=== PATIENT | female | born 1995 | race Caucasian/White ===

== ENCOUNTER 2021-02-07 00:48 | Emergency (ER) | payer OTHER, SELFPAY ==
[2021-02-07 00:57] VITALS: BP 127/78; PULSE 85; RESP 16; TEMP 36.5; O2SAT 100; BMI 34.3
--- NOTE | 2021-02-07 01:24 | ED.FEMALEGU ---
HPI - Female Genitourinary General Chief complaint: Urogenital-Female Stated complaint: Vaginal Discomfort Time Seen by Provider: 02/07/21 01:23 Source: patient Mode of arrival: ambulatory Limitations: no limitations History of Present Illness MD elicited complaint: vaginal discharge, pelvic pain and possible STD Pertinent past history: other (partner told her he might have something) Onset (ago): day(s) (2) Location of symptoms: suprapubic Severity: mild Quality of pain: dull Consistency: intermittent Vaginal discharge: other (thick yellow) Vaginal bleeding: none Exacerbating factors: none Relieving factors: none Associated symptoms: denies other symptoms Sexual activity: Yes, New Sexual Partners and Known STD Exposure (possible very vague) Related Data Previous Rx's Medication Instructions Recorded doxycycline hyclate 100 mg capsule 100 mg PO BID 7 Days #14 cap 02/07/21 ondansetron 4 mg disintegrating 4 mg PO Q8H PRN #20 tab 02/07/21 tablet Allergies Allergy/AdvReac Type Severity Reaction Status Date / Time No Known Allergies Allergy Verified 02/07/21 00:56 Review of Systems Review of Systems: Constitutional : No Fever, No Chills ENT/Mouth : No sore throat, No Rhinorrhea Eyes: No Eye Pain, No Redness Cardiovascular : No Chest Pain, No SOB Respiratory : No Cough, No Sputum, No Wheezing Gastrointestinal : no Nausea, No Vomiting, No Diarrhea, no abdominal pain, Genitourinary : no irregular bleeding, No Dysuria, No Urinary Frequency, positive pelvic pain, pos discharge Musculoskeletal : No Myalgias Skin : No rash Neuro : No Weakness, No Headache Psych : No Anxiety/Panic, No Depression Heme/Lymph: No bruising, No Lymphadenopathy Endocrine : No Polyuria, No Polydipsia All other systems reviewed and are negative [facility] Past Medical History Attestation statement: The following information was validated with the patient. Medical History No known health problems Social History Social History (Updated 02/07/21 @ 01:44 by Una Huber DO) Patient Tobacco Use Status: Never used Tobacco Advance Directives: No Advance Directives Information Provided: No Physical Exam Vital Signs: Vital Signs: Last Vital Signs Temp 97.7 F 02/07/21 00:57 Pulse 77 02/07/21 02:00 Resp 16 02/07/21 02:00 BP 99/71 02/07/21 02:00 Pulse Ox 99 02/07/21 02:00 Body Mass Index 34.3 Appearance: Alert. Oriented X3. No acute distress. Eyes: Pupils equal, round and reactive to light. ENT: Pharynx normal. Neck: Normal inspection. Neck supple. CVS: Normal heart rate and rhythm. Pulses normal. Respiratory: No respiratory distress. Breath sounds normal. Abdomen: Soft and nontender. no groin lymphadenopathy, no lesions noted : deferred, plan to self swab Skin: Skin warm and dry. Normal skin color. Normal skin turgor. Extremities: No lower extremity edema. No calf ttp Neuro: Oriented X 3. No motor deficit. No sensory deficit. MDM - Female Genitourinary MDM Narrative Medical decision making narrative: 25 yo female comes in with c/o some pelvic discomfort as well as vaginal discharge and being told by her new sexual partner he might have something - she c/o yellow thick discharge, she is afebrile no vomiting and her abdominal exam is bening doubt TOA - will treat for G+C and send off trichomonas. Dispo per results and findings, STI treatment planned Lab Data Labs: Lab Results 02/07/21 02/07/21 Range/Units 01:41 01:41 Urine Color YELLOW Urine Appearance CLEAR Urine pH 6.0 (5.0-8.0) Ur Specific Kiefer >= 1.030 H (1.005-1.025) Urine Protein NEG (NEG-TRACE) MG/DL Urine Glucose (UA) NEG (NEG) MG/DL Urine Ketones NEG (NEG) MG/DL Urine Blood 2+ H (NEG) Urine Nitrite NEG (NEG) Ur Leukocyte Esterase NEG (NEG) Urine RBC 5-9 H (0) /HPF Urine WBC 0-2 (0-4) /HPF Ur Squamous Epith Cells 2+ /LPF Calcium Oxalate Crystal 3+ /LPF Urine Bacteria NONE /LPF Urine Mucus 1+ /LPF Urine Test NEGATIVE (NEGATIVE) Discharge Plan Discharge Clinical Impression: Vaginitis Qualifiers: Chronicity: acute Qualified Code(s): N76.0 - Acute vaginitis Patient Disposition: Home, Self-Care Instructions: Sexually Transmitted Diseases (ED) Additional Instructions: return to ED for any worsening symptoms or concerns continue all antibiotics [facility] testing do not have sex for 10 days - you and your partner will continue to pass infections back and forth if you do we will call you with your results in 2 days if positive Prescriptions: New doxycycline hyclate 100 mg capsule 100 mg PO BID 7 Days Qty: 14 RF: 0 ondansetron 4 mg tablet,disintegrating 4 mg PO Q8H PRN (Reason: nausea and vomiting) Qty: 20 RF: 0 Stand Alone Forms: Work/School Release
[2021-02-07 01:51] LABS: Appearance Urine CLEAR; Color Urine YELLOW; Glucose Urine UA NEG (NEG); Leukocyte Esterase Urine NEG (NEG); Nitrite Urine NEG (NEG); Specific Gravity - Urine >= 1.030 (1.005-1.025); UACC Culture Trigger NO; Urine Blood 2+ (NEG); Urine Ketones NEG (NEG); Urine Protein NEG (NEG-TRACE)
[2021-02-07 01:53] LABS: Urine Pregnancy NEGATIVE (NEGATIVE)
[2021-02-07 01:54] LABS: UPreg QC Valid YES
[2021-02-07] MEDS: cefTRIAXone sodium 500 MG, Lidocaine HCl 1 % MPF 1 ML IM (01:59)
[2021-02-07] MEDS: Ondansetron ODT 4 MG TAB.RAPDIS TRANSLINGU (01:59)
[2021-02-07 02:00] VITALS: BP 99/71; PULSE 77; RESP 16; O2SAT 99
[2021-02-07 02:00] LABS: Calcium Oxalate Crystals Urine 3+ /LPF; Mucus Urine 1+ /LPF; Squamous Epithelial Cell Urine 2+ /LPF; WBC Urine 0-2 /HPF (0-4)
[2021-02-07 03:00] LABS: CT PCR NOT DETECTED (Not Detect.); NG PCR NOT DETECTED (Not Detect.)
== END 2021-02-07 02:21 | disposition home or self-care (01) ==
PROVIDERS: Emergency Provider Emergency Medicine
DX: N76.0 Acute vaginitis (principal)
CPT/HCPCS: 81001; 81025; 87491; 87591; 96372; 99284; J0696

== ENCOUNTER 2022-08-24 13:28 | Emergency (ER) | payer OTHER, SELFPAY ==
[2022-08-24 14:26] VITALS: BP 118/81; PULSE 84; RESP 16; O2SAT 100; BMI 24.5
--- NOTE | 2022-08-24 14:27 | ED.GENADULT ---
HPI - General Adult General Chief complaint: Psychiatric Symptoms Stated complaint: From police station for psych eval per EMS Time Seen by Provider: 08/24/22 13:41 Source: patient, RN notes reviewed and old records reviewed Mode of arrival: ambulatory Limitations: no limitations History of Present Illness HPI narrative: This is a 27 year old female presenting to the emergency department via EMS from police station. Patient is not fourthcoming about why she went to the police station. She denies SI/HI. And states that we cannot hold her here and that she is unsure why she is here. She reports that she would like IV fluids because she feels shaky , but does not answer any of the rest of my questions. MD complaint: ?anxiety Related Data Previous Rx's Medication Instructions Recorded doxycycline hyclate 100 mg capsule 100 mg PO BID 7 days #14 caps 02/07/21 ondansetron 4 mg disintegrating 4 mg PO Q8H PRN nausea and 02/07/21 tablet vomiting #20 tabs Allergies Allergy/AdvReac Type Severity Reaction Status Date / Time No Known Allergies Allergy Verified 02/07/21 00:56 Review of Systems Review of Systems: Yes all other systems are reviewed and are negative [facility] Past Medical History Medical History No known health problems Social History Social History (Updated 02/07/21 @ 01:44 by Nola Huber DO) Alcohol intake: current Alcohol type: beer and hard liquor Patient Tobacco Use Status: Never used Tobacco Substance Use Type: Marijuana Advance Directives: No Advance Directives Information Provided: Yes Physical Exam ED Vital Signs: Vital Signs - 24 hr 08/24/22 14:26 Respiratory Rate 16 BMI result Body Mass Index 24.5 General: Awake, alert, and oriented X3. No acute distress. HEENT: Normal inspection CVS: Normal heart rate and rhythm. Pulses normal. Respiratory: No respiratory distress Skin: Warm, dry, no rashes noted to exposed skin. Normal skin color. Normal skin turgor. Neuro: Oriented X 3. No motor deficit. No sensory deficit. Medical Decision Making Medical Decision Making MDM Narrative: 27-year-old female presents to the emergency department after going to the police department to report something Patient is very vague regarding the circumstances and refuses to answer most of my questions. The only things that she was able to tell me was that she feels shaky and was requesting a IV of fluids because she feels ?dehydrated?. I told her that I did not think it was appropriate to start an IV fluids without any blood work or any other questions answered in regards to this. She denies any SI or HI. She reports that she is safe at home. She is alert and oriented x3. She states that she would like to be discharged home and does not want to get blood work for labs. I offered for her to talk to the care team for further assessment and help however patient does not want to be seen by them and wants to be discharged. Because she has no suicidal or homicidal ideations and reports that she is safe to be discharged home, I feel as though it is reasonable to discharge her home. Vital signs stable. Patient is alert and oriented x3 without any focal deficits. Nurse had spoken to police department reported that she was reporting something that had alot of missing correlation and states that patient is safe in the community he can be discharged home. Patient has appropriate to be discharged at this time. Differential Diagnosis Differential Diagnoses: The differential diagnosis associated with the presentation includes Anxiety, depression, polysubstance abuse, SI/HI Discharge Plan Discharge Clinical Impression: Anxiety Patient Disposition: Home, Self-Care Instructions: Anxiety (ED) Additional Instructions: You refused to have labs done and you also refused to speak with our CARE team today. We can help facilitate resources for you when you are in crisis or need to speak to someone however you declined this today. If any new or worsening symptoms occur, please return for re-evaluation. Follow up with your primary care physician. Prescriptions: No Action doxycycline hyclate 100 mg capsule 100 mg PO BID 7 Days Qty: 14 0RF ondansetron 4 mg tablet,disintegrating 4 mg PO Q8H PRN (Reason: nausea and vomiting) Qty: 20 0RF Interventions: [place]-Suicide Risk Severity Scale Last Done: 08/24/22 14:39 Discharge Date/Time: 08/24/22 14:58
--- NOTE | 2022-08-24 14:36 | PC.NURSE ---
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 THEY EXPRESS NO CONCERN REGARDING A DISCHARGE FROM THE ED.
--- NOTE | 2022-08-24 15:05 | PC.NURSE ---
PT WAS OFFERED PLAN OF CARE AND PT DECLINED TO PARTICIPATE IN CARE. SHE STATES SHE WANTED TO BE DISCHARGED. SHE WAS GIVEN D/C INSTRUCTIONS BY PRIMARY RN. THEN SHE CLOSED HER EYES AND REFUSED TO GET UP, SHE THEN PUT HERSELF ON THE FLOOR. SHE EVENTUALLY STOOD UP AND WAS ESCORTED OUT OF THE ED WITHOUT INCIDENT/ SHE IS CURRENTLY STANDING OUT SIDE THE AMBULANCE BAY ON HER CELLPHONE
== END 2022-08-24 14:58 | disposition home or self-care (01) ==
PROVIDERS: Emergency Provider Emergency Medicine; PCP Internal Medicine
DX: F41.9 Anxiety disorder, unspecified (principal); Z79.899 Other long term (current) drug therapy
CPT/HCPCS: 99282; 99283

== ENCOUNTER 2022-08-25 22:00 | Observation (INO) | payer OTHER, SELFPAY ==
[2022-08-25] VITALS (8 sets, daily range): BP systolic 104–125; BP diastolic 43–62; PULSE 90–101; RESP 16–22; TEMP 36.7; O2SAT 97–98; BMI 30.1
--- NOTE | 2022-08-25 22:09 | ECG_ITS ---
Test Reason : OD Blood Pressure : / mmHG Vent. Rate : 103 BPM Atrial Rate : 103 BPM P-R Int : 154 ms QRS Dur : 094 ms QT Int : 418 ms P-R-T Axes : 073 079 064 degrees QTc Int : 547 ms Sinus tachycardia Possible Left atrial enlargement Prolonged QT Abnormal ECG No previous ECGs available Referred By: Ely Gayle Electronically Signed By:Madhav Trinidad
[2022-08-25] MEDS: Haloperidol Lactate 5 MG/ML VIAL IM (22:15)
[2022-08-25] MEDS: LORazepam 2 MG/ML VIAL IM (22:15)
[2022-08-25] MEDS: diphenhydrAMINE HCL 50 MG/ML VIAL IM (22:17)
--- NOTE | 2022-08-25 22:20 | PC.NURSE ---
Patient BIBA and PD, patient's right hand restrained d/t aggressive, combative behavior. Patient continues to present with aggressive, combative behavior at ED. ED staff unable to redirect patient at this time. Per EMS patient admitted taking bunch of pills. Patient is confused, and agitated. Patient is unable to provide information about the incident d/t AMS. 4 point restrained applied, patent medicated with Lorazepam 2 mg IM, Benadryl 50 mg IM, and Haldol 5 mg IM. 20 G IV line established in L AC, labs drawn and sent to the lab for processing.
--- NOTE | 2022-08-25 22:20 | ED.PSYCH ---
HPI - Psych General Chief Complaint: Psychiatric Symptoms Stated Complaint: crisis History of Present Illness HPI Narrative: Patient is a 27-year-old female presented to the police station yesterday with the thought of possible being dehydration. After she arrived in the emergency department yesterday patient denies and wanted to leave. Today patient was wandering the streets. Found by PD. Patient states that she is suicidal and she wanted or actually have the overdosed on medication. Patient unable to give details as to what she took. Sent in by PD. Patient is also sectioned by PD. Patient was agitated at times with PD. Related Data Previous Rx's Medication Instructions Recorded doxycycline hyclate 100 mg capsule 100 mg PO BID 7 days #14 caps 02/07/21 ondansetron 4 mg disintegrating 4 mg PO Q8H PRN nausea and 02/07/21 tablet vomiting #20 tabs Allergies Allergy/AdvReac Type Severity Reaction Status Date / Time No Known Allergies Allergy Verified 02/07/21 00:56 Review of Systems Review of Systems: Unable to obtain review of systems secondary to patient's condition [facility] Past Medical History Medical History No known health problems Social History Social History Alcohol intake: former Patient Tobacco Use Status: Never used Tobacco Smoked in Last 30 Days: Yes Substance Use Type: Marijuana Advance Directives: No Advance Directives Information Provided: Yes Physical Exam Vital Signs: Vital Signs: Last Vital Signs Temp 97.3 F 08/26/22 02:04 Pulse 97 08/26/22 03:22 Resp 20 08/26/22 03:22 BP 123/84 08/26/22 03:22 Pulse Ox 97 08/26/22 03:22 O2 Del Method Room Air 08/26/22 03:22 BMI result Body Mass Index 30.1 Appearance: Alert. Agitated Eyes: Pupils equal, round and reactive to light. ENT: Pharynx normal. Neck: Normal inspection. Neck supple. No lymph nodes noted. No crepitus CVS: Tachycardic but regular Pulses normal. Normal S1 and S2 Respiratory: No respiratory distress. Breath sounds normal. No Wheezing. No rales Abdomen: Soft and nontender. No rigidity. No distention. good BS x4 Skin: Skin warm and dry. Normal skin color. Normal skin turgor. Extremities: No lower extremity edema. Moving all extremities Neuro: Agitated, moving all extremities. Medications Administered Generic Name Dose Route Start Last Admin Trade Name Freq PRN Reason Stop Dose Admin Acetylcysteine 3,800 mg/ 519 mls @ 129.75 mls/hr 08/26/22 01:00 08/26/22 01:54 Dextrose IV 08/26/22 04:59 129.75 mls/hr ONCE ONE Administration Discontinued Medications Generic Name Dose Route Start Last Admin Trade Name Freq PRN Reason Stop Dose Admin Diphenhydramine HCl 50 mg 08/25/22 22:09 08/25/22 22:17 Diphenhydramine Hcl 50 Mg/Ml Vial IM 08/25/22 22:10 50 mg ONCE ONE Administration Haloperidol Lactate 5 mg 08/25/22 22:09 08/25/22 22:15 Haloperidol Lactate 5 Mg/Ml Vial IM 08/25/22 22:10 5 mg ONCE ONE Administration Sodium Chloride 1,000 mls @ 999 mls/hr 08/25/22 22:15 08/25/22 23:32 Ns IV 08/25/22 23:15 Infused .Q1H1M RON Infusion Sodium Chloride 1,000 mls @ 999 mls/hr 08/25/22 22:15 08/26/22 01:39 Ns IV 08/25/22 23:15 Infused .Q1H1M RON Infusion Acetylcysteine 11,600 mg/ 258 mls @ 258 mls/hr 08/25/22 23:06 08/26/22 00:40 Dextrose IV 08/26/22 00:05 258 mls/hr ONCE ONE Administration Sodium Chloride 2,313.33 mls @ 2,313.33 mls/hr 08/25/22 23:40 08/26/22 01:37 Ns 30 ml/kg infuse over 1 hr (2313.33 ml) 08/26/22 00:39 2,313.33 mls/hr IV Administration .Q1H STA Lorazepam 2 mg 08/25/22 22:09 08/25/22 22:15 Lorazepam 2 Mg/Ml Vial IM 08/25/22 22:10 2 mg ONCE ONE Administration Medical Decision Making Medical Decision Making MDM Narrative: Patient presents today agitated. Question overdose. Unsure as to the timing of the possible overdose. Patient refused to answer. Patient initially was given Haldol Ativan and Benadryl for sedation. Placed in 4 point restraint as patient is combative. Labs ordered. Patient was section by PD. Patient's labs showed an elevated anion gap. Lactate was 2.2. Likely secondary to dehydration and not secondary to sepsis. Patient's CPK is normal. Given IV fluids. Will recheck lactate level. Patient's aspirin level is 12. No gross evidence of aspirin overdose. Patient's Tylenol level was in the 60s. Unsure when patient took the Tylenol. Will start acetadote. My interpretation of patient's EKG showed a sinus pattern heart rate is 100 [place] QRS is normal. Patient's QT is prolonged at 547. There is no acute ST segment elevation noted. Will recheck lactate after dish no IV fluids. Patient being monitored. Sitter at bedside. Patient gradually became more awake alert still unable to tell when she actually took the medication. Patient Tylenol level initially was in the 60s being repeated at this time. Patient tox screen was positive for PCP. Lactate came down with IV fluids. This is likely secondary to dehydration. No evidence for sepsis. Given patient took Tylenol unsure of his chronic versus acute overdose unsure as to the timing will treat patient with 24 hours of a seated job. Patient's case discussed with poison control agree with plan. Patient to be admitted to the hospital for further evaluation. Patient possible suicidal ideation will require further monitoring because of her aggressive behavior. Consult Healthcare Provider Management of the patient was discussed with: Hospitalist Poison control hospitalist Lab Data MDM Lab Attestation statement: I reviewed the patient's lab results. 08/25/22 22:22 08/25/22 22:22 Labs: Lab Results 08/25/22 08/25/22 08/25/22 Range/Units 22:22 22:22 23:20 WBC 16.7 H (4.8-10.8) X10*3/uL RBC 4.55 (4.20-5.50) X10*6/uL Hgb 12.3 (12.0-16.0) g/dl Hct 36.8 L (37.0-47.0) % MCV 80.9 (80.0-98.0) fL MCH 27.0 (27.0-33.0) pg MCHC 33.4 (31.0-35.0) g/dl RDW 12.9 (11.0-16.0) % Plt Count 266 (160-400) X10*3/uL MPV 10.0 (9.4-12.3) fL Immature Gran % (Auto) 0.4 (0.0-0.4) % Neut % (Auto) 70.2 (45-73) % Lymph % (Auto) 21.9 (20-40) % [place] % (Auto) 7.3 (2-11) % Eos % (Auto) 0.1 (0-4) % Baso % (Auto) 0.1 (0-2) % Lymph # (Auto) 3.7 (1.2-4.9) X10*3/uL [place] # (Auto) 1.2 (0.1-1.2) X10*3/uL Eos # (Auto) 0.0 (0.0-0.4) X10*3/uL Baso # (Auto) 0.0 (0.0-0.2) X10*3/uL Abs Immat Gran (auto) 0.07 H (0.00-0.03) X10*3/uL Absolute Neuts (auto) 11.8 H (2.0-8.3) x10*3/uL Absolute Nucleated RBC 0.000 (0.0-0.012) X10*3/uL Nucleated RBC % (auto) 0.0 (0.0-0.2) /100WBC VBG pH (7.32-7.43) VBG pCO2 mmHg VBG pO2 mmHg VBG HCO3 (22-26) mmol/L VBG O2 Saturation % VBG Base Excess mmol/L Sodium 140 (135-145) mmol/L Potassium 3.0 L (3.3-5.1) mmol/L Chloride 102 (96-108) mmol/L Carbon Dioxide 19 L (22-29) mmol/L Anion Gap 22 H (12-20) BUN 8 L (9-16) mg/dL Creatinine 0.97 (0.5-1.4) mg/dL Estim Creat Clear Calc 84.1 Estimated GFR > 60 Random Glucose 162 H (60-115) mg/dL Lactic Acid 2.2 H* (0.5-2.0) mmol/L Lactic Acid F/U @ 2Hr (0.5-2.0) mmol/L Calcium 9.3 (8.4-10.2) mg/dL Total Bilirubin 0.7 (0.0-1.0) mg/dL Direct Bilirubin 0.2 (0.0-0.5) mg/dL AST 18 (5-31) U/L ALT 15 (0-31) U/L Alkaline Phosphatase 75 (39-117) U/L Total Creatine Kinase 312 H (26-140) U/L Total Protein 7.2 (6.5-8.0) g/dL Albumin 4.3 (3.5-5.0) g/dL Beta HCG, Quant < 2 mIU/mL Urine Color Urine Appearance Urine pH (5.0-9.0) Ur Specific [place] (1.005-1.025) Urine Protein (Neg-Trace) mg/dL Urine Glucose (UA) (Negative) mg/dL Urine Ketones (Negative) mg/dL Urine Blood (Negative) Urine Nitrite (Negative) Ur Leukocyte Esterase (Negative) Urine RBC (0-2) /HPF Urine WBC (0-5) /HPF Ur Squamous Epith Cells (0-2) /HPF Urine Bacteria (None Seen) Hyaline Casts (0-2) /LPF Salicylates 13.5 L (15-30) mg/dL Urine Opiates Screen (Not Detect) Urine Fentanyl Screen (Not Detect) Acetaminophen 67 H* (<30) mcg/mL Ur Barbiturates Screen (Not Detect) Ur Phencyclidine Scrn (Not Detect) Ur Amphetamines Screen (Not Detect) U Benzodiazepines Scrn (Not Detect) Urine Cocaine Screen (Not Detect) U Marijuana (THC) Screen (Not Detect) Ethyl Alcohol < 10 mg/dL 08/25/22 08/26/22 08/26/22 Range/Units 23:22 01:40 01:40 WBC (4.8-10.8) X10*3/uL RBC (4.20-5.50) X10*6/uL Hgb (12.0-16.0) g/dl Hct (37.0-47.0) % MCV (80.0-98.0) fL MCH (27.0-33.0) pg MCHC (31.0-35.0) g/dl RDW (11.0-16.0) % Plt Count (160-400) X10*3/uL MPV (9.4-12.3) fL Immature Gran % (Auto) (0.0-0.4) % Neut % (Auto) (45-73) % Lymph % (Auto) (20-40) % [place] % (Auto) (2-11) % Eos % (Auto) (0-4) % Baso % (Auto) (0-2) % Lymph # (Auto) (1.2-4.9) X10*3/uL [place] # (Auto) (0.1-1.2) X10*3/uL Eos # (Auto) (0.0-0.4) X10*3/uL Baso # (Auto) (0.0-0.2) X10*3/uL Abs Immat Gran (auto) (0.00-0.03) X10*3/uL Absolute Neuts (auto) (2.0-8.3) x10*3/uL Absolute Nucleated RBC (0.0-0.012) X10*3/uL Nucleated RBC % (auto) (0.0-0.2) /100WBC VBG pH 7.47 H (7.32-7.43) VBG pCO2 29 mmHg VBG pO2 92 mmHg VBG HCO3 21 L (22-26) mmol/L VBG O2 Saturation 99.0 % VBG Base Excess -1.3 mmol/L Sodium (135-145) mmol/L Potassium (3.3-5.1) mmol/L Chloride (96-108) mmol/L Carbon Dioxide (22-29) mmol/L Anion Gap (12-20) BUN (9-16) mg/dL Creatinine (0.5-1.4) mg/dL Estim Creat Clear Calc Estimated GFR Random Glucose (60-115) mg/dL Lactic Acid (0.5-2.0) mmol/L Lactic Acid F/U @ 2Hr 1.5 (0.5-2.0) mmol/L Calcium (8.4-10.2) mg/dL Total Bilirubin (0.0-1.0) mg/dL Direct Bilirubin (0.0-0.5) mg/dL AST (5-31) U/L ALT (0-31) U/L Alkaline Phosphatase (39-117) U/L Total Creatine Kinase (26-140) U/L Total Protein (6.5-8.0) g/dL Albumin (3.5-5.0) g/dL Beta HCG, Quant mIU/mL Urine Color RED Urine Appearance Turbid Urine pH 6.0 (5.0-9.0) Ur Specific [place] 1.020 (1.005-1.025) Urine Protein 100 (2+) H (Neg-Trace) mg/dL Urine Glucose (UA) Negative (Negative) mg/dL Urine Ketones >=80 (Negative) mg/dL Urine Blood Large (3+) H (Negative) Urine Nitrite Negative (Negative) Ur Leukocyte Esterase Trace H (Negative) Urine RBC >20 H (0-2) /HPF Urine WBC 6-10 (0-5) /HPF Ur Squamous Epith Cells 3-5 (0-2) /HPF Urine Bacteria 2+ (None Seen) Hyaline Casts 0-2 (0-2) /LPF Salicylates (15-30) mg/dL Urine Opiates Screen (Not Detect) Urine Fentanyl Screen (Not Detect) Acetaminophen (<30) mcg/mL Ur Barbiturates Screen (Not Detect) Ur Phencyclidine Scrn (Not Detect) Ur Amphetamines Screen (Not Detect) U Benzodiazepines Scrn (Not Detect) Urine Cocaine Screen (Not Detect) U Marijuana (THC) Screen (Not Detect) Ethyl Alcohol mg/dL 08/26/22 Range/Units 01:40 WBC (4.8-10.8) X10*3/uL RBC (4.20-5.50) X10*6/uL Hgb (12.0-16.0) g/dl Hct (37.0-47.0) % MCV (80.0-98.0) fL MCH (27.0-33.0) pg MCHC (31.0-35.0) g/dl RDW (11.0-16.0) % Plt Count (160-400) X10*3/uL MPV (9.4-12.3) fL Immature Gran % (Auto) (0.0-0.4) % Neut % (Auto) (45-73) % Lymph % (Auto) (20-40) % [place] % (Auto) (2-11) % Eos % (Auto) (0-4) % Baso % (Auto) (0-2) % Lymph # (Auto) (1.2-4.9) X10*3/uL [place] # (Auto) (0.1-1.2) X10*3/uL Eos # (Auto) (0.0-0.4) X10*3/uL Baso # (Auto) (0.0-0.2) X10*3/uL Abs Immat Gran (auto) (0.00-0.03) X10*3/uL Absolute Neuts (auto) (2.0-8.3) x10*3/uL Absolute Nucleated RBC (0.0-0.012) X10*3/uL Nucleated RBC % (auto) (0.0-0.2) /100WBC VBG pH (7.32-7.43) VBG pCO2 mmHg VBG pO2 mmHg VBG HCO3 (22-26) mmol/L VBG O2 Saturation % VBG Base Excess mmol/L Sodium (135-145) mmol/L Potassium (3.3-5.1) mmol/L Chloride (96-108) mmol/L Carbon Dioxide (22-29) mmol/L Anion Gap (12-20) BUN (9-16) mg/dL Creatinine (0.5-1.4) mg/dL Estim Creat Clear Calc Estimated GFR Random Glucose (60-115) mg/dL Lactic Acid (0.5-2.0) mmol/L Lactic Acid F/U @ 2Hr (0.5-2.0) mmol/L Calcium (8.4-10.2) mg/dL Total Bilirubin (0.0-1.0) mg/dL Direct Bilirubin (0.0-0.5) mg/dL AST (5-31) U/L ALT (0-31) U/L Alkaline Phosphatase (39-117) U/L Total Creatine Kinase (26-140) U/L Total Protein (6.5-8.0) g/dL Albumin (3.5-5.0) g/dL Beta HCG, Quant mIU/mL Urine Color Urine Appearance Urine pH (5.0-9.0) Ur Specific [place] (1.005-1.025) Urine Protein (Neg-Trace) mg/dL Urine Glucose (UA) (Negative) mg/dL Urine Ketones (Negative) mg/dL Urine Blood (Negative) Urine Nitrite (Negative) Ur Leukocyte Esterase (Negative) Urine RBC (0-2) /HPF Urine WBC (0-5) /HPF Ur Squamous Epith Cells (0-2) /HPF Urine Bacteria (None Seen) Hyaline Casts (0-2) /LPF Salicylates (15-30) mg/dL Urine Opiates Screen Not Detected (Not Detect) Urine Fentanyl Screen Not Detected (Not Detect) Acetaminophen (<30) mcg/mL Ur Barbiturates Screen Not Detected (Not Detect) Ur Phencyclidine Scrn POSITIVE H (Not Detect) Ur Amphetamines Screen Not Detected (Not Detect) U Benzodiazepines Scrn Not Detected (Not Detect) Urine Cocaine Screen Not Detected (Not Detect) U Marijuana (THC) Screen Not Detected (Not Detect) Ethyl Alcohol mg/dL Independent Interpretation I performed an independent interpretation of an: EKG Interpretation: Sinus heart rate is 100 [place] QRS QT within normal limits there is no acute ST segment elevation noted Critical Care Time Critical Care Time Critical Care Time: Yes Total Critical Care Time: 40 Attestation: I have personally provided 40 minutes of critical care time exclusive of time spent on separately billable procedures. Time includes review of lab data, radiology results, discussion with consultants, and monitoring for potential decompensation. Interventions were performed as documented above Discharge Plan Discharge Clinical Impression: Acute psychosis Patient Disposition: Admitted As Inpatient Prescriptions: No Action doxycycline hyclate 100 mg capsule 100 mg PO BID 7 Days Qty: 14 0RF ondansetron 4 mg tablet,disintegrating 4 mg PO Q8H PRN (Reason: nausea and vomiting) Qty: 20 0RF Interventions: [place]-Suicide Risk Severity Scale Last Done: 08/26/22 02:03
[2022-08-25 22:30] LABS: MANUAL DIFF FLAG NO
[2022-08-25 22:31] LABS: Basophils Percent Auto 0.1 % (0-2); Eosinophils Percent Auto 0.1 % (0-4); Hematocrit 36.8 % (37.0-47.0); Hemoglobin 12.3 g/dl (12.0-16.0); Imm Gran Abs Auto 0.07 X10*3/uL (0.00-0.03); Imm Gran Pct Auto 0.4 % (0.0-0.4); Lymphocytes Absolute Auto 3.7 X10*3/uL (1.2-4.9); Lymphocytes Percent Auto 21.9 % (20-40); Mean Corpuscular HGB Conc 33.4 g/dl (31.0-35.0); Mean Corpuscular Volume 80.9 fL (80.0-98.0); Monocytes Absolute Auto 1.2 X10*3/uL (0.1-1.2); Monocytes Percent Auto 7.3 % (2-11); Neutrophils Absolute Auto 11.8 x10*3/uL (2.0-8.3); Neutrophils Percent Auto 70.2 % (45-73); Platelet Count 266 X10*3/uL (160-400); Red Blood Count 4.55 X10*6/uL (4.20-5.50); Red Cell Distribution Width 12.9 % (11.0-16.0); White Blood Count 16.7 X10*3/uL (4.8-10.8)
[2022-08-25] MEDS: 0.9 % Sodium Chloride 1,000 ML 999 ML IV ×2 (22:32→23:12)
[2022-08-25 23:02] LABS: Acetaminophen LAB 67 mcg/mL (<30); Alanine Aminotransferase 15 U/L (0-31); Albumin Level 4.3 g/dL (3.5-5.0); Alkaline Phosphatase 75 U/L (39-117); Anion Gap 22 (12-20); Aspartate Amino Transferase 18 U/L (5-31); Bilirubin Direct 0.2 mg/dL (0.0-0.5); Bilirubin Total 0.7 mg/dL (0.0-1.0); Blood Urea Nitrogen 8 mg/dL (9-16); Calcium 9.3 mg/dL (8.4-10.2); Carbon Dioxide 19 mmol/L (22-29); Chloride 102 mmol/L (96-108); Creatinine Clr Calc Pharmacy 84.1; Estimated Glomerular Filt Rate > 60; Ethanol < 10 mg/dL; Glucose Random 162 mg/dL (60-115); HCG Quantitative < 2 mIU/mL; Salicylate 13.5 mg/dL (15-30); Sodium 140 mmol/L (135-145); Total Protein 7.2 g/dL (6.5-8.0)
[2022-08-25 23:28] LABS: Venous Blood Gas Refer to POC result
[2022-08-25 23:29] LABS: VBG Base Excess -1.3 mmol/L; VBG HCO3 21 mmol/L (22-26); VBG pCO2 29 mmHg; VBG pH 7.47 (7.32-7.43); VBG pO2 92 mmHg
[2022-08-25 23:41] LABS: Lactic Acid 2.2 mmol/L (0.5-2.0)
[2022-08-26] VITALS (13 sets, daily range): BP systolic 93–143; BP diastolic 46–97; PULSE 87–138; RESP 16–21; TEMP 36.3–37.3; O2SAT 96–99; BMI 30.1
--- NOTE | 2022-08-26 | ECG_ITS ---
Test Reason : overdose Blood Pressure : / mmHG Vent. Rate : 115 BPM Atrial Rate : 115 BPM P-R Int : 156 ms QRS Dur : 092 ms QT Int : 344 ms P-R-T Axes : 069 075 054 degrees QTc Int : 475 ms Sinus tachycardia Otherwise normal ECG When compared with ECG of 25-AUG-2022 22:49, Nonspecific T wave abnormality now evident in Inferior leads Referred By: Bala Lezama Electronically Signed By:Madhav Trinidad
[2022-08-26 01:27] LABS: Reflex Lactate? Lactic Acid Added
[2022-08-26] MEDS: 0.9 % Sodium Chloride 2,313.33 ML 2313.33 ML IV (01:37)
--- NOTE | 2022-08-26 01:45 | PC.NURSE ---
All restraints removed. Patient assisted to the restroom by environmental health technologist. Patient moved her bowels and provided urine specimen for toxicology. Urine specimen sent to the lab. Patient denies pain, second 20 IV line established in R A. Patient medicated per JUN.
[2022-08-26 02:05] LABS: ~Lactic Acid-LAB USE ONLY 1.5 mmol/L (0.5-2.0)
[2022-08-26 02:10] LABS: Amphetamine Screen Urine Not Detected (Not Detect); Barbiturates, Urine Not Detected (Not Detect); Benzodiazepines Screen Urine Not Detected (Not Detect); Cannabinoid Screen Urine Not Detected (Not Detect); Cocaine Screen Urine Not Detected (Not Detect); Fentanyl, urine Not Detected (Not Detect); Opiate Screen Urine Not Detected (Not Detect); Phencyclidine Screen Urine POSITIVE (Not Detect)
[2022-08-26 02:25] LABS: Appearance Urine Turbid; Color Urine RED; Glucose Urine UA Negative (Negative); Leukocyte Esterase Urine Trace (Negative); Nitrite Urine Negative (Negative); UMIC TRIGGER UACC YES; Urine Blood Large (3+) (Negative); Urine Ketones >=80 mg/dL (Negative); Urine Protein 100 (2+) mg/dL (Neg-Trace)
[2022-08-26 02:30] LABS: Bacteria Urine 2+ (None Seen); Hyaline Casts Urine 0-2 /LPF (0-2); RBC Urine >20 /HPF (0-2); UACC Culture Trigger YES
--- NOTE | 2022-08-26 03:39 | P.HPHOSP_ITS ---
History of Present Illness Date of Service: 08/26/22 Chief Complaint: Overdose 27-year-old female who denies any past medical history comes into the hospital after being found wandering the streets by police department. It appears the patient had been seen in the hospital the day prior after presenting to the PD Complaining of dehydration, she was brought into the hospital for evaluation but left. Returns today after being found by police wandering the streets. Patient has also been sectioned by police department. Was noted to be aggressive in the hospital, she was given Ativan. On my interview, patient states that she has been abusing PCP, and took Tylenol to try to commit suicide. She denies any chest pain, has nausea and some vomiting, no abdominal pain diarrhea or constipation, no urinary symptoms and no lower extremity edema. Denies any fever or chills. On arrival to the ED vitals stable Labs are significant for WBC count of 16.7, pH of 7.47, potassium 3.0, lactic acid of 2.2, UA positive for trace leukocyte Estrace and some WBC as well as bacteria, she has acetaminophen level of 67, and PCP positive in the urine. Patient started on N-acetylcysteine drip and will be admitted Review of Systems Review of Systems: Yes all other systems are reviewed and are negative [facility] Medical History No known health problems Social History Alcohol intake: former Patient Tobacco Use Status: Never used Tobacco Smoked in Last 30 Days: Yes Substance Use Type: Marijuana Advance Directives: No Advance Directives Information Provided: Yes Nutrition Risks: No Nutritional Risk Meds Allergies Allergy/AdvReac Type Severity Reaction Status Date / Time No Known Allergies Allergy Verified 02/07/21 00:56 Active Medications: Current Medications Acetylcysteine 7,700 mg/ (Dextrose) 1,038.5 mls @ 62.496 mls/hr IV ONCE ONE Stop: 08/26/22 21:37 Acetylcysteine 3,800 mg/ (Dextrose) 519 mls @ 129.75 mls/hr IV ONCE ONE Stop: 08/26/22 04:59 Last Admin: 08/26/22 01:54 Dose: 129.75 mls/hr Physical Exam Vital Signs and Narrative: Vital Signs: Last Vital Signs Temp 97.3 F 08/26/22 02:04 Pulse 97 08/26/22 03:22 Resp 20 08/26/22 03:22 BP 123/84 08/26/22 03:22 Pulse Ox 97 08/26/22 03:22 O2 Del Method Room Air 08/26/22 03:22 BMI result Body Mass Index 30.1 Const: General: cooperative and no acute distress Orientation/consciousness: patient oriented x3 Eyes: General: appearance normal, both eyes and all related structures Resp: Effort & Inspection: normal respiratory effort Auscultation: clear to auscultation bilaterally Cardio: Rate: regular rate Rhythm: regular rhythm GI: Palpation (GI): Soft to palpation Auscultation: normal bowel sounds Skin: General skin exam: no rashes or lesions noted Neuro: General: patient oriented x3 Cognition (Neuro): normal cognition Extrem: General: Yes normal to inspection and Yes no pedal edema Results Labs 08/25/22 22:22 08/25/22 22:22 Labs: Laboratory Results - last 24 hr 08/25/22 08/25/22 08/25/22 22:22 22:22 23:20 MCV 80.9 MCH 27.0 MCHC 33.4 RDW 12.9 Plt Count 266 MPV 10.0 Immature Gran % (Auto) 0.4 Neut % (Auto) 70.2 Lymph % (Auto) 21.9 [place] % (Auto) 7.3 Eos % (Auto) 0.1 Baso % (Auto) 0.1 Lymph # (Auto) 3.7 [place] # (Auto) 1.2 Eos # (Auto) 0.0 Baso # (Auto) 0.0 Abs Immat Gran (auto) 0.07 H Absolute Neuts (auto) 11.8 H Absolute Nucleated RBC 0.000 Nucleated RBC % (auto) 0.0 VBG pH VBG pCO2 VBG pO2 VBG HCO3 VBG O2 Saturation VBG Base Excess Anion Gap 22 H Estim Creat Clear Calc 84.1 Estimated GFR > 60 Random Glucose 162 H Lactic Acid 2.2 H* Lactic Acid F/U @ 2Hr Calcium 9.3 Total Bilirubin 0.7 Direct Bilirubin 0.2 AST 18 ALT 15 Alkaline Phosphatase 75 Total Creatine Kinase 312 H Total Protein 7.2 Albumin 4.3 Beta HCG, Quant < 2 Urine Color Urine Appearance Urine pH Ur Specific [place] Urine Protein Urine Glucose (UA) Urine Ketones Urine Blood Urine Nitrite Ur Leukocyte Esterase Urine RBC Urine WBC Ur Squamous Epith Cells Urine Bacteria Hyaline Casts Salicylates 13.5 L Urine Opiates Screen Urine Fentanyl Screen Acetaminophen 67 H* Ur Barbiturates Screen Ur Phencyclidine Scrn Ur Amphetamines Screen U Benzodiazepines Scrn Urine Cocaine Screen U Marijuana (THC) Screen Ethyl Alcohol < 10 08/25/22 08/26/22 08/26/22 23:22 01:40 01:40 MCV MCH MCHC RDW Plt Count MPV Immature Gran % (Auto) Neut % (Auto) Lymph % (Auto) [place] % (Auto) Eos % (Auto) Baso % (Auto) Lymph # (Auto) [place] # (Auto) Eos # (Auto) Baso # (Auto) Abs Immat Gran (auto) Absolute Neuts (auto) Absolute Nucleated RBC Nucleated RBC % (auto) VBG pH 7.47 H VBG pCO2 29 VBG pO2 92 VBG HCO3 21 L VBG O2 Saturation 99.0 VBG Base Excess -1.3 Anion Gap Estim Creat Clear Calc Estimated GFR Random Glucose Lactic Acid Lactic Acid F/U @ 2Hr 1.5 Calcium Total Bilirubin Direct Bilirubin AST ALT Alkaline Phosphatase Total Creatine Kinase Total Protein Albumin Beta HCG, Quant Urine Color RED Urine Appearance Turbid Urine pH 6.0 Ur Specific [place] 1.020 Urine Protein 100 (2+) H Urine Glucose (UA) Negative Urine Ketones >=80 Urine Blood Large (3+) H Urine Nitrite Negative Ur Leukocyte Esterase Trace H Urine RBC >20 H Urine WBC 6-10 Ur Squamous Epith Cells 3-5 Urine Bacteria 2+ Hyaline Casts 0-2 Salicylates Urine Opiates Screen Urine Fentanyl Screen Acetaminophen Ur Barbiturates Screen Ur Phencyclidine Scrn Ur Amphetamines Screen U Benzodiazepines Scrn Urine Cocaine Screen U Marijuana (THC) Screen Ethyl Alcohol 08/26/22 01:40 MCV MCH MCHC RDW Plt Count MPV Immature Gran % (Auto) Neut % (Auto) Lymph % (Auto) [place] % (Auto) Eos % (Auto) Baso % (Auto) Lymph # (Auto) [place] # (Auto) Eos # (Auto) Baso # (Auto) Abs Immat Gran (auto) Absolute Neuts (auto) Absolute Nucleated RBC Nucleated RBC % (auto) VBG pH VBG pCO2 VBG pO2 VBG HCO3 VBG O2 Saturation VBG Base Excess Anion Gap Estim Creat Clear Calc Estimated GFR Random Glucose Lactic Acid Lactic Acid F/U @ 2Hr Calcium Total Bilirubin Direct Bilirubin AST ALT Alkaline Phosphatase Total Creatine Kinase Total Protein Albumin Beta HCG, Quant Urine Color Urine Appearance Urine pH Ur Specific [place] Urine Protein Urine Glucose (UA) Urine Ketones Urine Blood Urine Nitrite Ur Leukocyte Esterase Urine RBC Urine WBC Ur Squamous Epith Cells Urine Bacteria Hyaline Casts Salicylates Urine Opiates Screen Not Detected Urine Fentanyl Screen Not Detected Acetaminophen Ur Barbiturates Screen Not Detected Ur Phencyclidine Scrn POSITIVE H Ur Amphetamines Screen Not Detected U Benzodiazepines Scrn Not Detected Urine Cocaine Screen Not Detected U Marijuana (THC) Screen Not Detected Ethyl Alcohol Assessment and Plan (1) Drug overdose: Status: Acute (2) Acute psychosis: Status: Acute (3) Suicide attempt: Status: Acute Plan 27-year-old female with no significant past medical history presents to the hospital after being found wandering the streets, thought to be psychotic found to have attempted suicide # drug overdose - in an attempt to commit suicide, she took Tylenol of unknown quantity as well as reports taking PCP - patient started on N-acetylcysteine drip - poison control following - monitor closely - BMP daily # acute psychosis - secondary to PCP - patient improved on my exam - monitor # suicide attempt - overdosing on Tylenol and PCP - continue bedside sitter - psychiatry consulted - sectioned by PD DVT prophylaxis: Early ambulation Time Spent With Patient Time: Total time managing care of this patient today ____ minutes. Quality Stroke Does the patient have a stroke diagnosis?: No VTE Prior VTE?: No VTE Risk Level:: Medical - low VTE Device Contraindication: Treatment Not Indicated VTE Drug Contraindication: Treatment Not Indicated
[2022-08-26 04:34] LABS: Acetaminophen LAB 31 mcg/mL (<30)
[2022-08-26] MEDS: Lactated Ringers 1,000 ML 100 ML IVCONT ×2 (04:44→12:28)
--- NOTE | 2022-08-26 05:22 | PC.NURSE ---
Patient has 1 episode of vomiting. Zofran 4 mg IV push administered per JUN. Nurse to nurse report given to Judy [facility] RN. Patient to be transported to [facility] 459 by radiocommunications technician.
[2022-08-26] MEDS: ondansetron HCL 4 MG/2 ML VIAL IVPUSH (05:26)
[2022-08-26 07:07] LABS: MANUAL DIFF FLAG NO
[2022-08-26 07:12] LABS: Basophils Percent Auto 0.1 % (0-2); Eosinophils Percent Auto 0.1 % (0-4); Hematocrit 34.7 % (37.0-47.0); Hemoglobin 11.6 g/dl (12.0-16.0); Imm Gran Abs Auto 0.08 X10*3/uL (0.00-0.03); Imm Gran Pct Auto 0.5 % (0.0-0.4); Lymphocytes Absolute Auto 1.8 X10*3/uL (1.2-4.9); Mean Corpuscular HGB Conc 33.4 g/dl (31.0-35.0); Mean Corpuscular Hemoglobin 27.6 pg (27.0-33.0); Mean Corpuscular Volume 82.6 fL (80.0-98.0); Mean Platelet Volume 10.4 fL (9.4-12.3); Monocytes Percent Auto 6.6 % (2-11); Neutrophils Absolute Auto 11.9 x10*3/uL (2.0-8.3); Neutrophils Percent Auto 80.7 % (45-73); Platelet Count 229 X10*3/uL (160-400); Red Cell Distribution Width 13.1 % (11.0-16.0); White Blood Count 14.7 X10*3/uL (4.8-10.8)
[2022-08-26 07:27] LABS: Glucose, Whole Blood 104 mg/dL (60-115)
[2022-08-26 07:37] LABS: Anion Gap 14 (12-20); Blood Urea Nitrogen 5 mg/dL (9-16); Carbon Dioxide 22 mmol/L (22-29); Chloride 107 mmol/L (96-108); Creatinine Clr Calc Pharmacy 113.3; Estimated Glomerular Filt Rate > 60; Glucose Random 102 mg/dL (60-115); Potassium 3.6 mmol/L (3.3-5.1); Sodium 139 mmol/L (135-145)
[2022-08-26 07:49] LABS: Calcium 8.1 mg/dL (8.4-10.2)
[2022-08-26] MEDS: OLANZapine 10 MG VIAL IM (08:52)
--- NOTE | 2022-08-26 10:49 | PM.EVENT ---
Event Note Date of Service: 08/26/22 Event Note: Day hospitalist update S: Pt pulled out IV and tried to run out of hospital Security called, assisted pt back to room Pt refusing to answer my questions re: PCP, other substancse abuse O: VS- T 99.2, BP 121/97, P 138, R 20, SaO2 96 on RA gen- uncooperative lungs- CTAB CV- RRR no m/r/g abd- soft/NT neuro- alert, able to walk/run, refuses to answer orientation questions psych- restricted affect labs- APAP 67->31 A/P: hospital day#1 27yo F found psychotic after suicide attempt with unknown quantity of APAP and unknown time of ingestion, also PCP+ # intentional APAP overdose - sitter, 24-hr NAC protocol, Poison Control following # psychosis - likely due to PCP - sitter, Psych no significant past medical history presents to the hospital after being found wandering the streets, thought to be psychotic found to have attempted suicide # lactic acidosis - resolved after fluid hydration, not due to sepsis # leukocytosis - reactive, not due to infection # VTE ppx: SCDs # dispo: inpt psych when medically cleared In my clinical judgment, the patient requires continued inpatient hospitalization for the following reasons: IV NAC ' Time Spent With Patient Time: Total time managing care of this patient today ____ minutes.
[2022-08-26 11:38] LABS: Alanine Aminotransferase 15 U/L (0-31); Albumin Level 3.7 g/dL (3.5-5.0); Alkaline Phosphatase 66 U/L (39-117); Aspartate Amino Transferase 25 U/L (5-31); Bilirubin Direct 0.2 mg/dL (0.0-0.5); Bilirubin Total 0.6 mg/dL (0.0-1.0); Total Protein 6.2 g/dL (6.5-8.0)
--- NOTE | 2022-08-26 12:15 | PC.NURSE ---
Pt woke up agitated, anxious and wanting to leave. Pt erasing the dry erase board, pt grabbing on to the sitter, pt throwing the clock, pt removing IVs. Re-direction and educated provided but not affective. Pt began putting on her clothes and proceeded to head for the nearest exit. Pt confused, unaware of the time, believed she signed an AMA form, however this was not the case. Provider aware and notified; provider instructed to call security. Security called; before security arrived pt ran down the stairs and out into the parking lot. Pt got into a truck. Security now present; able to assist pt back into hospital. Pt then searched. Provider at bedside. 10 mg IM Zyprexa administered per MAR. IM Zyprexa affective. Unable to get IV access until 1200. Acetylcysteine bag of 7700mg hung 5 hours later due to these circumstances. Acetylcystein bag of 7700 mg hung at 1215.
--- NOTE | 2022-08-26 12:15 | HE.PHANOTE ---
RN called today at @1215 looks for patients Acetylcysteine bag of 7700mg, Pharmacy had made bag and brought up by 0752 as pharmacy does need to prepare IV room first. Dose was due at 0730. RN asked to retime and instructed to give unscheduled dose as it was 5 hours later
--- NOTE | 2022-08-26 12:34 | PHA.MEDREC ---
Pharmacy Consult ? Medication Reconciliation Pharmacy has completed the medication reconciliation. Pt was able to tell me she is only on 1 medication. She knew name and strength.
--- NOTE | 2022-08-26 14:15 | MHC.CM.PN ---
Attempted to meet with the pt x 2, but pt unable to participate due to extreme lethargy. Copy of RUIZ left at bedside 08/26/22. CM will continue to attempt to meet with pt.
--- NOTE | 2022-08-26 15:55 | MHC.CM.PN ---
Pt admitted with dx overdose. Pt now awake alert, came from home lived with roommate in apartment, no services/DME, was independent/self-care. D/C plan to return home self-care. Awaiting psych consults for further recommendations. Pt does not have a HCP/declines to make one at this time. Pt will need lyft for transportation. PCP: Delmy Sweeney vax: x 3
--- NOTE | 2022-08-26 18:01 | PC.NURSE ---
Addendum entered by Constanza Phillips RN 08/26/22 19:30: Pt still anxious and agitated. This RN was able to gain 1 site for IV access, pt has a 20 gauge to the right forearm. Arms are swollen due to pt continuously ripping out IVs. Acetylcsteine was paused at around 1800 due to no access. Acetylcsteine resumed at this time. Original Note: Pt wanting to leave; pt up in the shower with her clothes on; pt removing IVs. Sitter in this room during this time. Pt not wanting to get out of the shower; security called and provider at bedside. Provider able to redirect pt to stay however pt not agreeing to get new IV access. Pt given Ativan 2mg IM for anxiety; pending effectiveness. Will re-approach to gain IV access. Safety and fall precautions maintained. Call hernandez within reach.
[2022-08-26] MEDS: LORazepam 2 MG/ML VIAL IM (18:08)
[2022-08-27 02:05] LABS: Hematocrit 37.8 % (37.0-47.0); Hemoglobin 12.5 g/dl (12.0-16.0); Mean Corpuscular HGB Conc 33.1 g/dl (31.0-35.0); Mean Corpuscular Hemoglobin 27.1 pg (27.0-33.0); Mean Platelet Volume 9.7 fL (9.4-12.3); Platelet Count 256 X10*3/uL (160-400); Red Blood Count 4.61 X10*6/uL (4.20-5.50); Red Cell Distribution Width 13.2 % (11.0-16.0); White Blood Count 10.1 X10*3/uL (4.8-10.8)
[2022-08-27 02:13] LABS: INTERNATIONAL NORM RATIO 1.3 (0.9-1.1); Prothrombin Time 14.7 SEC (10.0-13.1)
[2022-08-27 02:31] LABS: Alanine Aminotransferase 16 U/L (0-31); Alkaline Phosphatase 69 U/L (39-117); Anion Gap 12 (12-20); Aspartate Amino Transferase 27 U/L (5-31); Bilirubin Total 0.7 mg/dL (0.0-1.0); Blood Urea Nitrogen 4 mg/dL (9-16); Calcium 9.1 mg/dL (8.4-10.2); Carbon Dioxide 25 mmol/L (22-29); Chloride 108 mmol/L (96-108); Estimated Glomerular Filt Rate > 60; Glucose Random 84 mg/dL (60-115); Potassium 2.9 mmol/L (3.3-5.1); Sodium 142 mmol/L (135-145); Total Protein 6.6 g/dL (6.5-8.0)
[2022-08-27] MEDS: OLANZapine 10 MG VIAL 5 MG IM ×2 (03:03→19:00)
[2022-08-27 03:13] LABS: Acetaminophen LAB < 17 mcg/mL (<30)
[2022-08-27 04:00] VITALS: BP 124/71; PULSE 102; RESP 18; TEMP 36.5; O2SAT 99
--- NOTE | 2022-08-27 04:34 | PC.NURSE ---
Patient in room with annemarieter, very adamant about wanting to be released . Patient attempting to go into other patients rooms. Multiple staff attempting to have patient go back to her room but patient refused, eventually staff was able to get patient out of another patient's room and back to hallway near her room but patient was refusing to go back into her room. Security called and came to hallway to help assist patient back to room. Patient asked Am I going to here? Staff reassured patient she is safe in the hospital. Patient repeatedly asking when she will be able to get released from hospital. Reassured patient that the doctors will come see her later on in the morning to discuss the plan of care. Patient was offered warm blankets, snacks, etc. and patient refused. Patient refused IV acetylcysteine and attempted to touch IV pump and disassemble IV tubing from IV site . Patient instructed not to touch pump and patient states I know what I'm doing and you don't. You don't trust me, do you? Patient was educated on hospital equipment and safety. Dr aware of patient refusing IV acetylcysteine. Patient asking for her cell phone so she could use the internet to distract herself. Due to SI precautions/policy, patient was told her phone would not be able to be used at this time. Patient then goes into shower with gown and socks on. Patient then began brushing her teeth for an extended amount of time. Patient then got back into the shower two more times. Patient was redressed with the help of staff and patient attempting to sit in rolling chair and was asked to go to her bed due to the safety of the wheels on a chair. Patient back in bed resting comfortably with even respirations and chest rises. 5 MG IM Zyprexa x1 given with pending effect. Patient awaiting psych eval. Patient is section 12 and SI precautions in place.
[2022-08-27 07:40] VITALS: BP 130/73; PULSE 103; RESP 20; TEMP 36.7; O2SAT 100
[2022-08-27] MEDS: Potassium Chloride ER 20 MEQ TAB.ER.PRT 40 MEQ PO (08:57)
[2022-08-27 08:58] LABS: Magnesium 2.1 mg/dL (1.6-2.6)
--- NOTE | 2022-08-27 14:55 | HO.PM.IMPN ---
Subjective Subjective Date of Service: 08/27/22 Interval History: pulled out IV 6x yesterday refusing labs just now wants to go home, otherwise refusing to talk Review of Systems Review of Systems: Yes Unobtainable due to mental status Physical Exam Vital Signs: Vital Signs: Last Vital Signs Temp 98.1 F 08/27/22 07:40 Pulse 103 H 08/27/22 07:40 Resp 20 08/27/22 07:40 BP 130/73 08/27/22 07:40 Pulse Ox 100 08/27/22 07:40 O2 Del Method Room Air 08/27/22 07:40 BMI result Body Mass Index 30.1 Gen: agitated HEENT: sclera anicteric, moist mucus membranes Neck: supple Lungs: clear to auscultation bilaterally Heart: NAD, no murmurs Abd: soft, non-tender, non-distended Ext: no edema Skin: warm/well-perfused Neuro: alert, uncooperative with questions of orientation Psych: impaired insight Objective Data Active Medications Acetaminophen (Acetaminophen 325 Mg Tablet) 650 mg PO Q6H PRN PRN Reason: Pain, Mild (Pain Scale 1-3) Docusate Sodium (Docusate Sodium 100 Mg Capsule) 100 mg PO DAILY PRN PRN Reason: Constipation Potassium Chloride/Dextrose/Sod Cl (Kcl 20 Meq In 5% Dex/0.45% Sod) 20 meq in 1,000 mls @ 100 mls/hr IVCONT .Q10H [facility] Last Admin: 08/27/22 09:08 Dose: Not Given Documented By: LB Non-Admin Reason: NO IV ACCESS: PT REFUSING NEW IV Ondansetron HCl (Ondansetron Hcl 4 Mg/2 Ml Vial) 4 mg IVPUSH Q8H PRN PRN Reason: Nausea and Vomiting Last Admin: 08/26/22 05:26 Dose: 4 mg Documented By: JUAN CARLOS Sodium Chloride (0.9 % Sodium Chloride Flush 3 Ml Syringe) 3 ml IVFLUSH QSHIFT [facility] Last Admin: 08/27/22 12:52 Dose: Not Given Documented By: LB Non-Admin Reason: No Access Labs 08/27/22 01:59 08/27/22 01:59 Labs: Laboratory Results - last 24 hr 08/27/22 08/27/22 08/27/22 01:59 01:59 01:59 MCV 82.0 MCH 27.1 MCHC 33.1 RDW 13.2 Plt Count 256 MPV 9.7 Absolute Nucleated RBC 0.000 Nucleated RBC % (auto) 0.0 PT 14.7 H INR 1.3 H Anion Gap 12 Estim Creat Clear Calc 102.0 Estimated GFR > 60 Random Glucose 84 Calcium 9.1 D Magnesium 2.1 Total Bilirubin 0.7 AST 27 ALT 16 Alkaline Phosphatase 69 Total Creatine Kinase 1002 H Total Protein 6.6 Albumin 4.0 Acetaminophen < 17 Microbiology Microbiology Results: Microbiology 08/26/22 Unknown Urine Culture - Final Urine Catheterized - Meek Catheter Strep agalactiae (Grp B) Assessment and Plan (1) Suicide attempt: Status: Acute (2) Drug overdose: Status: Acute (3) Acute psychosis: Status: Acute Plan hospital day#2 27yo F found psychotic after suicide attempt with unknown quantity of APAP and unknown time of ingestion, also abusing PCP # hypoK - replete PO, refuses IV, refuses recheck level # elevated CPK - likely due to PCP, recheck level ordered but pt refuses # intentional APAP overdose - sitter, completed 24-hr NAC protocol, Poison Control signed off # psychosis - likely due to PCP - sitter, Psych consult # lactic acidosis - resolved after fluid hydration, not due to sepsis # leukocytosis - reactive, not due to infection # VTE ppx: SCDs # dispo: inpt psych, awaiting Care Team evaluation In my clinical judgment, the patient requires continued inpatient hospitalization for the following reasons: psychiatrc hold Time Spent With Patient Time: Total time managing care of this patient today __35__ minutes. Quality Stroke Does the patient have a stroke diagnosis?: No VTE Prior VTE?: No VTE Risk Level:: Medical - low VTE Device Contraindication: Treatment Not Indicated VTE Drug Contraindication: Treatment Not Indicated
--- NOTE | 2022-08-27 14:56 | PM.PSYCN ---
History of Present Illness Date of Service: 08/27/2022 Chief Complaint: overdose Requesting physician: Bala Lezama Discussed with referring provider: Yes Sources of Information: patient interviewed, chart reviewed and crisis/core team assessment reviewed HPI Narrative: Ms. Peres is a 27 year-old woman who was brought in by police after found wondering. In the ED, pt reported suicide attempt via OD on tylenol. In the ED, acetaminophen level was 67. Utox was positive for PCP. Pt presented as agitated, taking off IV. Not able to be redirected requiring IM olanzapine and ativan. Pt was admitted to medical floor for tx of acetaminophen overdose and started on NAC drip. Today, acetaminophen level was less than 17. Pt seen in room. Pt sitting quiet. When asked about events leading to this hospital stay, pt reports she took tylenol as a suicide attempt. Pt asked several times if she could have her phone. Pt redirected to continue interview given that she had been combative earlier in the day, going to the bathroom with clothes trying to take a shower. When asked if she knows where she is, pt does report that she know she is in the hospital. She does know the year and month, not date. When asked about if she has current suicidal ideation, pt continues to ask for her phone. Pt states if I have my phone I will stay quiet. Again, pt asked if she was leaving. This marketing writer explained that she is here due to consequences of OD which she reports it was a suicide attempt. This marketing writer asks again, if patient continues to have thoughts of wanting to end her life. Pt then proceed to color in coloring book she was given. Pt asks again about her phone and whether she is going. When asked about her going to the bathroom and trying to take a shower with her clothes, she states I like to be clean, I take showers. Pt not able to provide much information as to triggers for suicidal ideation, length of this thoughts prior to the actual attempt with acetaminophen. Despite several attempt of re framing question of whether she is still or not suicidal, pt's attention appear poor and did not answer or provide any kind of logical and coherent explanation as to whether or not she is still suicidal. When asked about substance use, pt states she does not know what PCP is even when told that street name is [address]. She denied substance use. This marketing writer attempted to call emergency personal computer specialist but unable to leave to obtain further collateral information as to pt's baseline and recent hx. [facility] Medical History No known health problems Diagnostics Vital Signs (24Hr): Vital Signs - 24 hr 08/26/22 15:41 08/26/22 19:37 08/27/22 04:00 Temperature 98.4 F 99.0 F 97.7 F Pulse Rate 109 H 100 102 H Respiratory Rate 17 16 18 Blood Pressure 143/74 H 120/65 124/71 Pulse Oximetry 98 99 99 Oxygen Delivery Method Room Air Room Air Room Air 08/27/22 07:40 Temperature 98.1 F Pulse Rate 103 H Respiratory Rate 20 Blood Pressure 130/73 Pulse Oximetry 100 Oxygen Delivery Method Room Air BMI result Body Mass Index 30.1 Labs 08/27/22 01:59 08/27/22 01:59 Labs: Laboratory Results - last 48 hr 08/25/22 08/25/22 08/25/22 22:22 22:22 23:20 WBC 16.7 H RBC 4.55 Hgb 12.3 Hct 36.8 L MCV 80.9 MCH 27.0 MCHC 33.4 RDW 12.9 Plt Count 266 MPV 10.0 Immature Gran % (Auto) 0.4 Neut % (Auto) 70.2 Lymph % (Auto) 21.9 [place] % (Auto) 7.3 Eos % (Auto) 0.1 Baso % (Auto) 0.1 Lymph # (Auto) 3.7 [place] # (Auto) 1.2 Eos # (Auto) 0.0 Baso # (Auto) 0.0 Abs Immat Gran (auto) 0.07 H Absolute Neuts (auto) 11.8 H Absolute Nucleated RBC 0.000 Nucleated RBC % (auto) 0.0 PT INR VBG pH VBG pCO2 VBG pO2 VBG HCO3 VBG O2 Saturation VBG Base Excess Sodium 140 Potassium 3.0 L Chloride 102 Carbon Dioxide 19 L Anion Gap 22 H BUN 8 L Creatinine 0.97 Estim Creat Clear Calc 84.1 Estimated GFR > 60 POC Glucose Random Glucose 162 H Lactic Acid 2.2 H* Lactic Acid F/U @ 2Hr Calcium 9.3 Magnesium Total Bilirubin 0.7 Direct Bilirubin 0.2 AST 18 ALT 15 Alkaline Phosphatase 75 Total Creatine Kinase 312 H Total Protein 7.2 Albumin 4.3 Beta HCG, Quant < 2 Urine Color Urine Appearance Urine pH Ur Specific [place] Urine Protein Urine Glucose (UA) Urine Ketones Urine Blood Urine Nitrite Ur Leukocyte Esterase Urine RBC Urine WBC Ur Squamous Epith Cells Urine Bacteria Hyaline Casts Salicylates 13.5 L Urine Opiates Screen Urine Fentanyl Screen Acetaminophen 67 H* Ur Barbiturates Screen Ur Phencyclidine Scrn Ur Amphetamines Screen U Benzodiazepines Scrn Urine Cocaine Screen U Marijuana (THC) Screen Ethyl Alcohol < 10 08/25/22 08/26/22 08/26/22 23:22 01:40 01:40 WBC RBC Hgb Hct MCV MCH MCHC RDW Plt Count MPV Immature Gran % (Auto) Neut % (Auto) Lymph % (Auto) [place] % (Auto) Eos % (Auto) Baso % (Auto) Lymph # (Auto) [place] # (Auto) Eos # (Auto) Baso # (Auto) Abs Immat Gran (auto) Absolute Neuts (auto) Absolute Nucleated RBC Nucleated RBC % (auto) PT INR VBG pH 7.47 H VBG pCO2 29 VBG pO2 92 VBG HCO3 21 L VBG O2 Saturation 99.0 VBG Base Excess -1.3 Sodium Potassium Chloride Carbon Dioxide Anion Gap BUN Creatinine Estim Creat Clear Calc Estimated GFR POC Glucose Random Glucose Lactic Acid Lactic Acid F/U @ 2Hr 1.5 Calcium Magnesium Total Bilirubin Direct Bilirubin AST ALT Alkaline Phosphatase Total Creatine Kinase Total Protein Albumin Beta HCG, Quant Urine Color RED Urine Appearance Turbid Urine pH 6.0 Ur Specific [place] 1.020 Urine Protein 100 (2+) H Urine Glucose (UA) Negative Urine Ketones >=80 Urine Blood Large (3+) H Urine Nitrite Negative Ur Leukocyte Esterase Trace H Urine RBC >20 H Urine WBC 6-10 Ur Squamous Epith Cells 3-5 Urine Bacteria 2+ Hyaline Casts 0-2 Salicylates Urine Opiates Screen Urine Fentanyl Screen Acetaminophen Ur Barbiturates Screen Ur Phencyclidine Scrn Ur Amphetamines Screen U Benzodiazepines Scrn Urine Cocaine Screen U Marijuana (THC) Screen Ethyl Alcohol 08/26/22 08/26/22 08/26/22 01:40 04:07 06:42 WBC 14.7 H RBC 4.20 Hgb 11.6 L Hct 34.7 L MCV 82.6 MCH 27.6 MCHC 33.4 RDW 13.1 Plt Count 229 MPV 10.4 Immature Gran % (Auto) 0.5 H Neut % (Auto) 80.7 H Lymph % (Auto) 12.0 L [place] % (Auto) 6.6 Eos % (Auto) 0.1 Baso % (Auto) 0.1 Lymph # (Auto) 1.8 [place] # (Auto) 1.0 Eos # (Auto) 0.0 Baso # (Auto) 0.0 Abs Immat Gran (auto) 0.08 H Absolute Neuts (auto) 11.9 H Absolute Nucleated RBC 0.000 Nucleated RBC % (auto) 0.0 PT INR VBG pH VBG pCO2 VBG pO2 VBG HCO3 VBG O2 Saturation VBG Base Excess Sodium Potassium Chloride Carbon Dioxide Anion Gap BUN Creatinine Estim Creat Clear Calc Estimated GFR POC Glucose Random Glucose Lactic Acid Lactic Acid F/U @ 2Hr Calcium Magnesium Total Bilirubin Direct Bilirubin AST ALT Alkaline Phosphatase Total Creatine Kinase Total Protein Albumin Beta HCG, Quant Urine Color Urine Appearance Urine pH Ur Specific [place] Urine Protein Urine Glucose (UA) Urine Ketones Urine Blood Urine Nitrite Ur Leukocyte Esterase Urine RBC Urine WBC Ur Squamous Epith Cells Urine Bacteria Hyaline Casts Salicylates Urine Opiates Screen Not Detected Urine Fentanyl Screen Not Detected Acetaminophen 31 H Ur Barbiturates Screen Not Detected Ur Phencyclidine Scrn POSITIVE H Ur Amphetamines Screen Not Detected U Benzodiazepines Scrn Not Detected Urine Cocaine Screen Not Detected U Marijuana (THC) Screen Not Detected Ethyl Alcohol 08/26/22 08/26/22 08/27/22 06:42 07:16 01:59 WBC 10.1 RBC 4.61 Hgb 12.5 Hct 37.8 MCV 82.0 MCH 27.1 MCHC 33.1 RDW 13.2 Plt Count 256 MPV 9.7 Immature Gran % (Auto) Neut % (Auto) Lymph % (Auto) [place] % (Auto) Eos % (Auto) Baso % (Auto) Lymph # (Auto) [place] # (Auto) Eos # (Auto) Baso # (Auto) Abs Immat Gran (auto) Absolute Neuts (auto) Absolute Nucleated RBC 0.000 Nucleated RBC % (auto) 0.0 PT INR VBG pH VBG pCO2 VBG pO2 VBG HCO3 VBG O2 Saturation VBG Base Excess Sodium 139 Potassium 3.6 Chloride 107 Carbon Dioxide 22 Anion Gap 14 BUN 5 L Creatinine 0.72 Estim Creat Clear Calc 113.3 Estimated GFR > 60 POC Glucose 104 Random Glucose 102 Lactic Acid Lactic Acid F/U @ 2Hr Calcium 8.1 L D Magnesium Total Bilirubin 0.6 Direct Bilirubin 0.2 AST 25 ALT 15 Alkaline Phosphatase 66 Total Creatine Kinase Total Protein 6.2 L Albumin 3.7 Beta HCG, Quant Urine Color Urine Appearance Urine pH Ur Specific [place] Urine Protein Urine Glucose (UA) Urine Ketones Urine Blood Urine Nitrite Ur Leukocyte Esterase Urine RBC Urine WBC Ur Squamous Epith Cells Urine Bacteria Hyaline Casts Salicylates Urine Opiates Screen Urine Fentanyl Screen Acetaminophen Ur Barbiturates Screen Ur Phencyclidine Scrn Ur Amphetamines Screen U Benzodiazepines Scrn Urine Cocaine Screen U Marijuana (THC) Screen Ethyl Alcohol 08/27/22 08/27/22 01:59 01:59 WBC RBC Hgb Hct MCV MCH MCHC RDW Plt Count MPV Immature Gran % (Auto) Neut % (Auto) Lymph % (Auto) [place] % (Auto) Eos % (Auto) Baso % (Auto) Lymph # (Auto) [place] # (Auto) Eos # (Auto) Baso # (Auto) Abs Immat Gran (auto) Absolute Neuts (auto) Absolute Nucleated RBC Nucleated RBC % (auto) PT 14.7 H INR 1.3 H VBG pH VBG pCO2 VBG pO2 VBG HCO3 VBG O2 Saturation VBG Base Excess Sodium 142 Potassium 2.9 L Chloride 108 Carbon Dioxide 25 Anion Gap 12 BUN 4 L Creatinine 0.80 Estim Creat Clear Calc 102.0 Estimated GFR > 60 POC Glucose Random Glucose 84 Lactic Acid Lactic Acid F/U @ 2Hr Calcium 9.1 D Magnesium 2.1 Total Bilirubin 0.7 Direct Bilirubin AST 27 ALT 16 Alkaline Phosphatase 69 Total Creatine Kinase 1002 H Total Protein 6.6 Albumin 4.0 Beta HCG, Quant Urine Color Urine Appearance Urine pH Ur Specific [place] Urine Protein Urine Glucose (UA) Urine Ketones Urine Blood Urine Nitrite Ur Leukocyte Esterase Urine RBC Urine WBC Ur Squamous Epith Cells Urine Bacteria Hyaline Casts Salicylates Urine Opiates Screen Urine Fentanyl Screen Acetaminophen < 17 Ur Barbiturates Screen Ur Phencyclidine Scrn Ur Amphetamines Screen U Benzodiazepines Scrn Urine Cocaine Screen U Marijuana (THC) Screen Ethyl Alcohol Mental Status Exam Mental Status Exam Narrative: Appearance: wearing hospital gown, fair hygiene, in NAD Behavior: poor attention, superficially cooperative Psychomotor: no agitation or retardation noted Speech: clear, at times some delayed in response, regular rhythm, spontaneous TP: some derailment at times TC: wanting to get a phone Mood: fine Affect: confused Si: unable to assess HI: unable to assess AH/VH: unclear if internally preoccupied Delusions: no overt delusional content noted or reported. Insight/judgment: impaired x 2. alert, oriented to place, month, year not so much situation or events leading to this admission. Medications Medications Current Medications Acetaminophen (Acetaminophen 325 Mg Tablet) 650 mg PO Q6H PRN PRN Reason: Pain, Mild (Pain Scale 1-3) Docusate Sodium (Docusate Sodium 100 Mg Capsule) 100 mg PO DAILY PRN PRN Reason: Constipation Potassium Chloride/Dextrose/Sod Cl (Kcl 20 Meq In 5% Dex/0.45% Sod) 20 meq in 1,000 mls @ 100 mls/hr IVCONT .Q10H [facility] Last Admin: 08/27/22 09:08 Dose: Not Given Ondansetron HCl (Ondansetron Hcl 4 Mg/2 Ml Vial) 4 mg IVPUSH Q8H PRN PRN Reason: Nausea and Vomiting Last Admin: 08/26/22 05:26 Dose: 4 mg Sodium Chloride (0.9 % Sodium Chloride Flush 3 Ml Syringe) 3 ml IVFLUSH QSHIFT [facility] Last Admin: 08/27/22 12:52 Dose: Not Given Allergies Allergies Allergy/AdvReac Type Severity Reaction Status Date / Time No Known Allergies Allergy Verified 02/07/21 00:56 Assessment & Plan Assessment & Plan (1) Acute psychosis: Status: Acute Code(s): F23 - Brief psychotic disorder (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 Constantino is a 27 year-old woman who was brought by police after she was found wondering and appeared confused. In the ED, pt reported intentional OD on tylenol which she reported in the ED and continues to report to this marketing writer that it was a suicide attempt. Pt has presented with episodes of combative behaviors, confused at times (trying to take shower with clothes on, ripping out IV). Pt did not provide logical or coherent explanation as to whether she is still experiencing suicidal thoughts. Her attention appeared poor and some degree of confusion as to her ability to process information was present. She does present with some degree of delirium, most likely secondary to PCP use (either intentionally or laced unknowingly). It is unclear at this time if pt continues experience suicidal ideation due to confusional state, and at this moment she is not showing capacity to make medical decisions, nor to be discharged without further psychiatric assessment of suicidality as she clears up. PLAN 1. Continue sitter. Pt currently on sect 12a. Bed search for inpatient psych to further assess suicidality and safe discharge to community. 2. Can scheduled olanzapine 5mg po BID with additional Olanzapine 5-10mg po q6h for agitation and ativan 1mg po q4h prn severe anxiety and agitation. Monitor EKG, maintain Qtc< 500ms, K>4, Mg >2. Total time managing care of this patient today ____ minutes.
--- NOTE | 2022-08-27 15:00 | PM.DS ---
DS: Providers Provider Date of Service: 08/27/22 Date of admission: 08/26/22 03:26 Date of discharge: 08/27/22 Primary care physician: Delmy Boston MD Consults: 08/25/22 22:14 Consult to Care Team Stat Comment: Reason for consultation: si 08/26/22 06:27 Consult to Psychiatry Routine Consulting Provider: Psych Covering Reason for consultation: suicide attempt Has provider been notified: No 08/26/22 07:29 Consult for Sitter Routine Reason for consultation: SI 08/27/22 12:23 Consult to Care Team Stat Comment: Reason for consultation: Refusing care. Medically cleared from poison control perspective Consult to Psychiatry Stat Consulting Provider: Psych Covering Reason for consultation: Refusing care. Medically cleared from poison control perspective 08/27/22 14:48 Consult to Care Team Stat Comment: Reason for consultation: 2nd request pt medically cleare DS: Diagnosis Discharge Diagnosis (1) Suicide attempt: Status: Acute (2) Drug overdose: Status: Acute (3) Acute psychosis: Status: Acute (4) PCP abuse: Status: Acute DS: Summary Hospital Course Hospital Course: from admission H+P 08/26/22 by hospitalist Jose Alberto Rivera MD: 27-year-old female who denies any past medical history comes into the hospital after being found wandering the streets by police department.? It appears the patient had been seen in the hospital the day prior after presenting to the PD? Complaining of dehydration, she was brought into the hospital for evaluation but left.? Returns today after being found by police wandering the streets. Patient has also been sectioned by police department.? Was noted to be aggressive in the hospital, she was given Ativan.? On my interview, patient states that she has been abusing PCP, and took Tylenol to try to commit suicide.? She denies any chest pain, has nausea and some vomiting, no abdominal pain diarrhea or constipation, no urinary symptoms and no lower extremity edema.? Denies any fever or chills.? On arrival to the ED vitals stable Labs are significant for WBC count of 16.7, pH of 7.47, potassium 3.0, lactic acid of 2.2, UA positive for trace leukocyte Estrace and some WBC as well as bacteria, she has acetaminophen level of 67, and PCP positive in the urine. Patient started on N-acetylcysteine drip and will be admitted 27yo F found psychotic after suicide attempt with unknown quantity of APAP and unknown time of ingestion, also abusing PCP. Evnrprbba-vj-nrirva behavior including at one point trying to run out of the hospital, mulitple pulled IVs, defecating on the floor of the bathroom. Generally uncooperative historian. Hospital course by problem: # hypoK - repleted PO and normalized # elevated CPK - likely due to PCP, PO hydration encouraged, came down to <1000, no rechecks indicated # intentional APAP overdose - sitter, completed 24-hr NAC protocol, Poison Control signed off after done # psychosis - likely due to PCP + underlying psychotic disorder, got multiple doses of olanzapine - sitter, transfer to inpatient Psychiatry now that medically stable # lactic acidosis - resolved after fluid hydration, not due to sepsis # leukocytosis - reactive, not due to infection She was transferred to Psychiatry for management of her psychosis. Time Spent with Patient Time attestation: Total time managing care of this patient today ___35_ minutes. Discharge coordination time: Greater than 30 minutes Quality: Safe Use of Opioids Does Pt have an Active Cancer Diagnosis on the Problem List?: No Quality: Stroke Does the patient have a stroke diagnosis?: No Physical Exam Vital Signs: Vital Signs: Last Vital Signs Temp 98.1 F 08/27/22 07:40 Pulse 103 H 08/27/22 07:40 Resp 20 08/27/22 07:40 BP 130/73 08/27/22 07:40 Pulse Ox 100 08/27/22 07:40 O2 Del Method Room Air 08/27/22 07:40 BMI result Body Mass Index 30.1 Gen: agitated HEENT: sclera anicteric, moist mucus membranes Neck: supple Lungs: clear to auscultation bilaterally Heart: NAD, no murmurs Abd: soft, non-tender, non-distended Ext: no edema Skin: warm/well-perfused Neuro: alert, uncooperative with questions of orientation Psych: impaired insight DS: Data Data Completed and Pending Completed studies during hospitalization [Text1]: Laboratory Results WBC 10.1 X10*3/uL (4.8-10.8) 08/27/22 01:59 RBC 4.61 X10*6/uL (4.20-5.50) 08/27/22 01:59 Hgb 12.5 g/dl (12.0-16.0) 08/27/22 01:59 Hct 37.8 % (37.0-47.0) 08/27/22 01:59 MCV 82.0 fL (80.0-98.0) 08/27/22 01:59 MCH 27.1 pg (27.0-33.0) 08/27/22 01:59 MCHC 33.1 g/dl (31.0-35.0) 08/27/22 01:59 RDW 13.2 % (11.0-16.0) 08/27/22 01:59 Plt Count 256 X10*3/uL (160-400) 08/27/22 01:59 MPV 9.7 fL (9.4-12.3) 08/27/22 01:59 Immature Gran % (Auto) 0.5 % (0.0-0.4) H 08/26/22 06:42 Neut % (Auto) 80.7 % (45-73) H 08/26/22 06:42 Lymph % (Auto) 12.0 % (20-40) L 08/26/22 06:42 [place] % (Auto) 6.6 % (2-11) 08/26/22 06:42 Eos % (Auto) 0.1 % (0-4) 08/26/22 06:42 Baso % (Auto) 0.1 % (0-2) 08/26/22 06:42 Lymph # (Auto) 1.8 X10*3/uL (1.2-4.9) 08/26/22 06:42 [place] # (Auto) 1.0 X10*3/uL (0.1-1.2) 08/26/22 06:42 Eos # (Auto) 0.0 X10*3/uL (0.0-0.4) 08/26/22 06:42 Baso # (Auto) 0.0 X10*3/uL (0.0-0.2) 08/26/22 06:42 Abs Immat Gran (auto) 0.08 X10*3/uL (0.00-0.03) H 08/26/22 06:42 Absolute Neuts (auto) 11.9 x10*3/uL (2.0-8.3) H 08/26/22 06:42 Absolute Nucleated RBC 0.000 X10*3/uL (0.0-0.012) 08/27/22 01:59 Nucleated RBC % (auto) 0.0 /100WBC (0.0-0.2) 08/27/22 01:59 PT 14.7 SEC (10.0-13.1) H 08/27/22 01:59 INR 1.3 (0.9-1.1) H 08/27/22 01:59 VBG pH 7.47 (7.32-7.43) H 08/25/22 23:22 VBG pCO2 29 mmHg 08/25/22 23:22 VBG pO2 92 mmHg 08/25/22 23:22 VBG HCO3 21 mmol/L (22-26) L 08/25/22 23:22 VBG O2 Saturation 99.0 % 08/25/22 23:22 VBG Base Excess -1.3 mmol/L 08/25/22 23:22 Sodium 144 mmol/L (135-145) 08/28/22 09:16 Potassium 3.5 mmol/L (3.3-5.1) D 08/28/22 09:16 Chloride 108 mmol/L (96-108) 08/28/22 09:16 Carbon Dioxide 26 mmol/L (22-29) 08/28/22 09:16 Anion Gap 14 (12-20) 08/28/22 09:16 BUN 6 mg/dL (9-16) L 08/28/22 09:16 Creatinine 0.82 mg/dL (0.5-1.4) 08/28/22 09:16 Estim Creat Clear Calc 99.5 08/28/22 09:16 Estimated GFR > 60 08/28/22 09:16 POC Glucose 104 mg/dL (60-115) 08/26/22 07:16 Random Glucose 95 mg/dL (60-115) 08/28/22 09:16 Lactic Acid 2.2 mmol/L (0.5-2.0) H* 08/25/22 23:20 Lactic Acid F/U @ 2Hr 1.5 mmol/L (0.5-2.0) 08/26/22 01:40 Calcium 9.6 mg/dL (8.4-10.2) 08/28/22 09:16 Magnesium 1.8 mg/dL (1.6-2.6) 08/28/22 09:16 Total Bilirubin 0.4 mg/dL (0.0-1.0) 08/28/22 09:16 Direct Bilirubin 0.2 mg/dL (0.0-0.5) 08/26/22 06:42 AST 25 U/L (5-31) 08/28/22 09:16 ALT 18 U/L (0-31) 08/28/22 09:16 Alkaline Phosphatase 74 U/L (39-117) 08/28/22 09:16 Total Creatine Kinase 882 U/L (26-140) H 08/28/22 09:16 Total Protein 6.9 g/dL (6.5-8.0) 08/28/22 09:16 Albumin 4.2 g/dL (3.5-5.0) 08/28/22 09:16 Beta HCG, Quant < 2 mIU/mL 08/25/22 22:22 Urine Color RED 08/26/22 01:40 Urine Appearance Turbid 08/26/22 01:40 Urine pH 6.0 (5.0-9.0) 08/26/22 01:40 Ur Specific [place] 1.020 (1.005-1.025) 08/26/22 01:40 Urine Protein 100 (2+) mg/dL (Neg-Trace) H 08/26/22 01:40 Urine Glucose (UA) Negative mg/dL (Negative) 08/26/22 01:40 Urine Ketones >=80 mg/dL (Negative) 08/26/22 01:40 Urine Blood Large (3+) (Negative) H 08/26/22 01:40 Urine Nitrite Negative (Negative) 08/26/22 01:40 Ur Leukocyte Esterase Trace (Negative) H 08/26/22 01:40 Urine RBC >20 /HPF (0-2) H 08/26/22 01:40 Urine WBC 6-10 /HPF (0-5) 08/26/22 01:40 Ur Squamous Epith Cells 3-5 /HPF (0-2) 08/26/22 01:40 Urine Bacteria 2+ (None Seen) 08/26/22 01:40 Hyaline Casts 0-2 /LPF (0-2) 05/15/23 01:40 Salicylates 13.5 mg/dL (15-30) L 08/25/22 22:22 Urine Opiates Screen Not Detected (Not Detect) 08/26/22 01:40 Urine Fentanyl Screen Not Detected (Not Detect) 08/26/22 01:40 Acetaminophen < 17 mcg/mL (<30) 08/27/22 01:59 Ur Barbiturates Screen Not Detected (Not Detect) 08/26/22 01:40 Ur Phencyclidine Scrn POSITIVE (Not Detect) H 08/26/22 01:40 Ur Amphetamines Screen Not Detected (Not Detect) 08/26/22 01:40 U Benzodiazepines Scrn Not Detected (Not Detect) 08/26/22 01:40 Urine Cocaine Screen Not Detected (Not Detect) 08/26/22 01:40 U Marijuana (THC) Screen Not Detected (Not Detect) 08/26/22 01:40 Ethyl Alcohol < 10 mg/dL 08/25/22 22:22 COVID-19 (ISABELLE) Negative (Negative) 08/28/22 09:21 COVID-19 Clin Com See Note 08/28/22 09:21 Discharge Plan Discharge Patient Disposition: Xfer Psychiatric Hosp Discharge Diagnosis: acute psychosis, suicidal attempt via intentional acetaminophen overdose, PCP intoxictaion Referrals: Delmy Boston MD [Primary Care Provider] - 1 Week Discharge Medications: Discontinued sertraline 25 mg tablet 25 mg PO DAILY Discharge Orders: Discharge Order (Routine); Ordered 08/28/22 Ordered By: Bala Lezama Diet: Advance to usual diet Activity on Discharge: As tolerated Stand Alone Forms: Patient Portal Discharge page Care Plan Goals: mental health Health Concerns: acute psychosis, suicidal attempt via intentional acetaminophen overdose, PCP intoxictaion Plan of Treatment: transfer to inpatient psychiatry Assessment: See Discharge Summary.
[2022-08-27] MEDS: LORazepam 1 MG TABLET 2 MG PO (16:36)
[2022-08-27] MEDS: OLANZapine 5 MG TABLET PO (16:36)
[2022-08-27 19:17] VITALS: BP 123/74; PULSE 82; RESP 20; TEMP 36.5; O2SAT 94
--- NOTE | 2022-08-27 19:20 | PC.NURSE ---
Pt again taking a shower for the second time during this shift after being educated that she was not able due for safety purposes. Pt then walking around the hallway naked, going in pt rooms, trying to take another shower after just getting out of the shower; pt requesting discharge papers and her clothes. Pt educated several times throughout the shift that she is here for a SI and a section 12, pt states I came here voluntarily . Pt confused and disoriented. Pt refusing to go into her room and put her clothes on. Security called at this time. Pt then grab phone off the nurses station and called 911. Security present at this time; pt not re-directable. Hospitalist aware; new orders placed. IM Zyprexa ordered and given; pending effectiveness. Safety and fall precautions maintained. Call hernandez within reach. Camera in room. Sitter in room.
--- NOTE | 2022-08-27 22:11 | PC.NURSE ---
Addendum entered by Judy Streeter RN 08/27/22 22:13: Pt has Discharge order to Psych floor. I spoke to adjustment supervisor to check on status of transfer, She informed me to call [facility]. I called [facility] who said there was a female bed available but to call the care team because it has to go through them. I called the care team who said the discharge would be tomorrow. MD Burrows notified. Original Note: Pt wandering out into the hallway. Just took a shower, pacing back and forth and keeps asking to leave. Asking for her clothes and to be discharged. Pt reminded that she is sectioned and cannot leave right now. She refused her po zyprexa. Pt made her way to the front end loader driver, Security called as Pt refuses to go back into room. MD burrows notified.
[2022-08-28] MEDS: OLANZapine 10 MG VIAL IM (00:13)
[2022-08-28] MEDS: diphenhydrAMINE HCL 50 MG/ML VIAL IM (00:14)
[2022-08-28] MEDS: Nicotine 21 MG PATCH.TD24 TRANSDERMA ×2 (01:05→09:20)
[2022-08-28 04:00] VITALS: BP 123/81; PULSE 90; RESP 20; TEMP 36.1; O2SAT 100
[2022-08-28 07:32] VITALS: BP 121/75; PULSE 74; RESP 20; TEMP 37; O2SAT 100
--- NOTE | 2022-08-28 09:00 | PC.NURSE ---
Around this time pt proceeded to walk out of the room; pt pushed through the sitter out into the hallway, pt then tried to leave the floor through the stairwell; code assist was called at this time. Door to stairwell held by staff; Pt able to be redirected by staff back into the room. Security now present at this time. Pt then proceed to lock herself into the bathroom; pt holding herself against the door where staff unable to get in. Once pt stopped holding herself against the bathroom door, staff was able to get in. It was then found pt defecated on the bathroom floor and then proceeded to get in the shower even after being educating that it was not safe. Pt showered for 30-45 minutes; pt now in bed. Psych doctor at bedside once pt got out of shower; new orders placed. Pt given PO Ativan and Zyprexa. Took several attempts to try to get pt to take medication. After pt took the medication; this RN searched pt mouth where it was found under her tongue; pt told to swallow them and after several attempts she swallowed them. While security was present pt allowed blood draw and COVID swab. PO Ativan and Zyprexa with positive effect. Pt sleeping comfortably. Safety and fall precautions maintained. Call hernandez within reach. Camera in room. Sitter in room. Security outside room.
[2022-08-28] MEDS: LORazepam 1 MG TABLET 2 MG PO (09:06)
[2022-08-28] MEDS: OLANZapine 5 MG TABLET PO (09:06)
[2022-08-28 09:58] LABS: Alanine Aminotransferase 18 U/L (0-31); Albumin Level 4.2 g/dL (3.5-5.0); Alkaline Phosphatase 74 U/L (39-117); Aspartate Amino Transferase 25 U/L (5-31); Bilirubin Total 0.4 mg/dL (0.0-1.0); Blood Urea Nitrogen 6 mg/dL (9-16); Calcium 9.6 mg/dL (8.4-10.2); Creatinine Clr Calc Pharmacy 99.5; Estimated Glomerular Filt Rate > 60; Glucose Random 95 mg/dL (60-115); Magnesium 1.8 mg/dL (1.6-2.6); Total Protein 6.9 g/dL (6.5-8.0)
[2022-08-28 10:08] LABS: Anion Gap 14 (12-20); Carbon Dioxide 26 mmol/L (22-29); Chloride 108 mmol/L (96-108); Potassium 3.5 mmol/L (3.3-5.1); Sodium 144 mmol/L (135-145)
[2022-08-28 10:18] LABS: COVID-19 Test Negative (Negative); IDNOW Serial# BCCEAD1C
--- NOTE | 2022-08-28 12:26 | MHC.CM.PN ---
Addendum entered by Nancy Brantley 08/28/22 13:00: MOTHER CALLED UNIT AND LEFT CONTACT INFORMATION: AGUSTÍN ASHFORD [phone] Original Note: DP: [place] BEING [place] [facility] [place] [facility] [place]
== END 2022-08-28 13:44 ==
LOC: HO.ED 08-26 03:42 → HO.EDOVER 08-26 03:45 → HO.IMC 08-26 04:02
PROVIDERS: Admitting Provider Internal Medicine; Emergency Provider Emergency Medicine Emergency Medical Services; PCP Internal Medicine; Visit Provider Family Medicine
DX: F23 Brief psychotic disorder (principal); T39.1X2A Poisoning by 4-Aminophenol derivatives, intentional self-harm, initial encounter; T40.992A Poisoning by other psychodysleptics [hallucinogens], intentional self-harm, initial encounter; Y92.414 Local residential or business street as the place of occurrence of the external cause; F16.10 Hallucinogen abuse, uncomplicated; E87.6 Hypokalemia; E87.20 Acidosis, unspecified; D72.829 Elevated white blood cell count, unspecified; R45.6 Violent behavior; F41.9 Anxiety disorder, unspecified; R45.1 Restlessness and agitation; R00.0 Tachycardia, unspecified; Z20.822 Contact with and (suspected) exposure to COVID-19
CPT/HCPCS: 36415; 80048; 80053; 80076; 80143; 80179; 80307; 81001; 82550; 82803; 82947; 83605; 83735; 84702; 85025; 85027; 85610; 87086; 87147; 87635; 93005; 96361; 96365; 96366; 96372; 99222; 99285; J0132; J1200; J2060; J2405; S9485

== ENCOUNTER 2022-08-28 14:08 | Inpatient (IN) | payer OTHER, SELFPAY ==
--- OUTSIDE RECORDS SUMMARY | 2022-08-28 14:10 | XMS_ITS | Continuity of Care Document ---
Author Name Unknown Organization [facility] Address [address] [place] [address]- Care Team Providers Care Hardware Installer Name Role Phone Bishop MORENO, Robyn Primary Care Physician [facility] Date[facility]): 01/15/22 - 02/14/22 [facility] [address], [place] [address] Attending Physician: Mateo Regalado Admitting Physician: Mateo Regalado Referring Physician: AdmtrMateo Allergies, Adverse Reactions, Alerts No Known Allergies Immunizations Given and Recorded Vaccine Date Status Refusal Reason Human Papillomavirus Vaccine 02/12/08 Given tetanus-diphtheria toxoids (Td) 07/13/03 Given Measles/Mumps/Rubella Virus Vaccine 04/11/98 Given Measles/Mumps/Rubella Virus Vaccine 02/09/95 Given Poliovirus Vaccine, Inactivated 04/11/98 Given Poliovirus Vaccine, Inactivated 02/09/95 Given Poliovirus Vaccine, Inactivated 07/10/94 Given Poliovirus Vaccine, Inactivated 93 Given diphtheria/tetanus/pertussis, acel(DTaP) 04/11/98 Given diphtheria/tetanus/pertussis, acel(DTaP) 08/11/95 Given diphtheria/tetanus/pertussis, acel(DTaP) 02/09/95 Given diphtheria/tetanus/pertussis, acel(DTaP) 07/10/94 Given diphtheria/tetanus/pertussis, acel(DTaP) 93 Given Varicella Virus Vaccine 04/11/97 Given Haemophilus B conjugate (HbOC) vaccine 08/11/95 Gi jose angel Haemophilus B conjugate (HbOC) vaccine 02/09/95 Gi jose angel Haemophilus B conjugate (HbOC) vaccine 07/10/94 Gi jose angel Haemophilus B conjugate (HbOC) vaccine 93 Gi jose angel hepatitis B pediatric vaccine 07/10/94 Given hepatitis B pediatric vaccine 93 Given hepatitis B pediatric vaccine 93 Given Medications sertraline 25 mg oral tablet 1 tablet = 25 mg, By Mouth, Daily, # 30 tablet, 11 Refills, Maintenance, 07/06/21 14:42:00 EDT, Tablet, [id number], Partial fill upon patient request if the prescription is for a schedule II opioid drug., 144.78, cm, 07/06/21 14:35:00 EDT, Height Start Date: 07/06/21 Status: Ordered Problem List Condition Confirmation Course Effective Dates Status Health St atus Informant Depression Confirmed Active Obese class I Confirmed Active Current tobacco use Confirmed Active Patient Care team information Personnel Name: Robyn Alas MD Address: Address: [address] [place] [id number]
--- OUTSIDE RECORDS SUMMARY | 2022-08-28 14:10 | XMS_ITS | Continuity of Care Document ---
Author Name Unknown Organization [facility] Address [address] [place] [address]- Care Team Providers Care Sales Support Representative Name Role Phone Robyn Alas MD Primary Care Physician [facility]counter [facility] Date[facility]s): 07/09/21 - 08/08/[address] [address] Allergies, Adverse Reactions, Alerts No Known Allergies [...] 11 Refills, Maintenance, 07/06/21 14:42:00 EDT, Tablet, [facility] #[id number], Partial fill upon patient request if the prescription is for a schedule II opioid drug., 144.78, cm, 07/06/21 14:35:00 EDT, Height Start Date: 07/06/21 Status: Ordered Problem List Condition Effective Dates Status Health Status Inform ant Depression(Confirmed) Active Obese class I(Confirmed) Active Current tobacco use(Confirmed) Active
--- OUTSIDE RECORDS SUMMARY | 2022-08-28 14:10 | XMS_ITS | Continuity of Care Document ---
Author Name Unknown Organization [facility] Address [address] [place] [address]- Care Team Providers Care Senior Quality Control Inspector Name Role Phone Robyn Alas MD Primary Care Physician [phone] Encounter [facility] Date(s): 08/06/21 - 09/05/[address] [address]- Attending Physician: Mateo Regalado Admitting Physician: Mateo [...] Refills, Maintenance, 07/06/21 14:42:00 EDT, Tablet, [id number], Partial fill upon patient request if the prescription is for a schedule II opioid drug., 144.78, cm, 07/06/21 14:35:00 EDT, Height Start Date: 07/06/21 Status: Ordered Problem List Condition Effective Dates Status Health Status Inform ant Depression(Confirmed) Active Obese class I(Confirmed) Active Current tobacco use(Confirmed) Active
--- OUTSIDE RECORDS SUMMARY | 2022-08-28 14:10 | XMS_ITS | Continuity of Care Document ---
Author Name Unknown Organization [facility] Address [address] [place] [address]- Care Team Providers Care Manager Multicultural Name Role Phone Robyn Alas MD Primary Care Physician [phone] [facility]counter [facility] Date(s): 03/20/22 - 04/19/[address] [address]- Allergies, Adverse Reactions, Alerts No Known Allergies Immunizations Given and Recorded Vaccine Date Status Refusal Reason tetanus/diphtheria/pertussis, acel(Tdap) 04/18/22 Given SARS-CoV-2 mRNA ([id number]) vax 04/18/22 Given Measles/Mumps/Rubella Virus Vaccine 03/01/16 Recor ded Measles/Mumps/Rubella Virus Vaccine 07/29/12 Recor ded Measles/Mumps/Rubella Virus Vaccine 04/11/98 Given Measles/Mumps/Rubella Virus Vaccine 02/09/95 Given Human Papillomavirus Vaccine 02/12/08 Given tetanus-diphtheria toxoids (Td) 07/13/03 Given Poliovirus Vaccine, Inactivated 04/11/98 Given Poliovirus [...] Refills, Maintenance, 07/06/21 14:42:00 EDT, Tablet, [id number], Partial fill upon patient request if the prescription is for a schedule II opioid drug., 144.78, cm, 07/06/21 14:35:00 EDT, Height Start Date: 07/06/21 Status: Ordered Problem List Condition Confirmation Course Effective Dates Status Health St atus Informant Depression Confirmed Active Obese class II Confirmed Active Current tobacco use Confirmed Active Patient Care team information Care Team Personnel Name: Robyn Alas MD Position: [facility] Resident Member Role: PCP Address: Address: [address] [place] [address] Care Team Related Persons Name: ASTRID SERNA Name: AGUSTÍN ASHFORD Address: home [address] [place] [address]
--- OUTSIDE RECORDS SUMMARY | 2022-08-28 14:10 | XMS_ITS | Continuity of Care Document ---
Author Name Unknown Organization [facility] Address [address] [place] [address]- Care Team Providers Care Concrete Truck Driver Name Role Phone Robyn Alas MD Primary Care Physician Encounter [facility] Date(s): 05/09/22 - 06/16/[address] [address]- Attending Physician: Not on Staff, Attending MD Allergies, Adverse Reactions, Alerts No Known Allergies Immunizations Given and Recorded Vaccine Date Status Refusal Reason SARS-CoV-2 mRNA ([id number]) vax 05/09/22 Given SARS-CoV-2 mRNA ([id number]) vax 04/18/22 Given tetanus/diphtheria/pertussis, acel(Tdap) 04/18/22 Given Measles/Mumps/Rubella Virus Vaccine 03/01/16 Recor [...] 11 Refills, Maintenance, 07/06/21 14:42:00 EDT, Tablet, [facility] #[id number], Partial fill upon patient request if [...] Team Personnel Name: Robyn Alas MD Position: [facility] Resident Member Role: PCP Address: Address: [address] [place] [address]- Care Team Related Persons Name: ASTRID SERNA Name: AGUSTÍN ASHFORD Address: home [address] [place] [address]
--- OUTSIDE RECORDS SUMMARY | 2022-08-28 14:10 | XMS_ITS | Continuity of Care Document ---
Author Name Unknown Organization [facility] Address [address] [place] [address]- Care Team Providers Care Marine Engineering Technicians Name Role Phone Not on Staff, PCP Primary Care Physician Unavail able [facility]counter [facility] Date[facility]s): 03/19/21 - 04/29/[address] [address] Attending Physician: Jesi Salter Admitting Physician: Jesi Salter Referring Physician: Jesi Salter Allergies, Adverse Reactions, Alerts No Known Allergies [...] hepatitis B pediatric vaccine 93 Given Medications influenza virus vaccine, inactivated high-dose preservative-free intramuscular suspension 0.5 mL, Intramuscular, Once, # 1 each, 0 Refills, Maintenance, Suspension Start Date: 03/11/11 Status: Ordered permethrin 1% topical kit See Instructions, Apply to hair, leave on for 10 mins then rinse out, comb nits out with fine toothcomb Reapply after 1 week, # 2 bottle, 0 Refills, Maintenance, 11/28/16 12:10:43, Apply to hair, leave on for 10 mins then rinse out, comb nits out wi... Start Date: 11/28/16 Status: Ordered Multivitamins By Mouth, Daily, 0 Refills, Maintenance Start Date: 10/07/10 Status: Ordered sertraline 25 mg oral tablet 1 tablet = 25 mg, By Mouth, Daily, # 30 tablet, 2 Refills, Maintenance, 09/01/17 9:28:37 EDT, Tablet Start Date: 09/01/17 Status: Ordered
--- OUTSIDE RECORDS SUMMARY | 2022-08-28 14:10 | XMS_ITS | Continuity of Care Document ---
Author Name Unknown Organization [facility] ter Address [address] [place] [address]- Care Team Providers Care Management Consultant Name Role Phone Not on Staff, PCP Primary Care Physician Unavail able [facility]counter [facility] Date(s): 04/23/21 - 06/13/[address] [address] Attending Physician: Jesi Salter Admitting Physician: [...]
--- OUTSIDE RECORDS SUMMARY | 2022-08-28 14:10 | XMS_ITS | Continuity of Care Document ---
Author Name Unknown Organization [facility] Address [address] [place] [address]- Care Team Providers Care Instructor Private Name Role Phone Robyn Alas MD Primary Care Physician [phone] [place] [facility] [place] 08/02/[place] - 09/05/[address] [address]- Attending Physician: Not on Staff, Attending MD [...] 11 Refills, Maintenance, 07/06/21 14:42:00 EDT, Tablet, [facility]/pharmacy #[id number], Partial fill upon patient request if the prescription is for a schedule II opioid drug., 144.78, cm, 07/06/21 14:35:00 EDT, Height Start Date: 07/06/21 Status: Ordered Problem List Condition Effective Dates Status Health Status Inform ant Depression(Confirmed) Active Obese class I(Confirmed) Active Current tobacco use(Confirmed) Active
--- OUTSIDE RECORDS SUMMARY | 2022-08-28 14:10 | XMS_ITS | Continuity of Care Document ---
Author Name Unknown Organization [facility] Address [address] [place] [address]- Care Team Providers Care Electronics Department Manager Name Role Phone Robyn Alas MD Primary Care Physician [facility]counter [facility] Date(s): 04/01/22 - 05/01/[address] [address]- Allergies, Adverse Reactions, Alerts No Known Allergies Immunizations Given and Recorded Vaccine Date Status Refusal Reason tetanus/diphtheria/pertussis, acel(Tdap) 04/18/22 Given SARS-CoV-2 mRNA ([id number]) vax 04/18/22 Given Measles/Mumps/Rubella Virus Vaccine 03/01/16 [...] Team Personnel Name: Robyn Alas MD Position: [facility] Resident Member Role: PCP Address: Address: [address] [place] [address] Care Team Related Persons Name: ASTRID SERNA Name: AGUSTÍN ASHFORD Address: home [address] [place] [address]
--- OUTSIDE RECORDS SUMMARY | 2022-08-28 14:10 | XMS_ITS | Continuity of Care Document ---
Author Name Unknown Organization [facility] Address [address] [place] [id number]- Care Team Providers Care Coagulant Dipper Name Role Phone Robyn Alas MD Primary Care Physician [phone] Encounter [facility] [id number] Date(s): 05/09/22 - 06/08/[address] [address]- Attending Physician: Mateo Regalado Admitting Physician: AdmtrMateo Referring Physician: Admtr, Ar8 Allergies, Adverse Reactions, Alerts No Known Allergies Immunizations Given and Recorded Vaccine Date Status Refusal Reason SARS-CoV-2 mRNA (pzsdzbh-gxbj-asxpd) vax 05/09/22 Given SARS-CoV-2 mRNA (oypkxdy-rmvt-haakq) vax 04/18/22 Given tetanus/diphtheria/pertussis, acel(Tdap) 04/18/22 Given [...] Team Personnel Name: Robyn Alas MD Position: [facility] Resident Member Role: PCP Address: Address: [address] [place] [address] Care Team Related Persons Name: ASTRID SERNA Name: AGUSTÍN ASHFORD Address: home [address] [place] [address]
--- OUTSIDE RECORDS SUMMARY | 2022-08-28 14:10 | XMS_ITS | Continuity of Care Document ---
Author Name Unknown Organization [facility] Address [address] [place] [address]- Care Team Providers Care Histological Illustrator Name Role Phone Robyn Alas MD Primary Care Physician [phone] Encounter [facility] Date(s): 05/28/22 - 06/27/[address] [address]- Allergies, Adverse Reactions, Alerts No Known Allergies Immunizations Given and Recorded Vaccine Date Status Refusal Reason SARS-CoV-2 mRNA (smbreqy-yeux-ttbsk) vax 05/09/22 Given SARS-CoV-2 mRNA (abuixfb-vnun-hoiee) vax 04/18/22 Given tetanus/diphtheria/pertussis, acel(Tdap) 04/18/22 Given [...] 11 Refills, Maintenance, 07/06/21 14:42:00 EDT, Tablet, [facility]/pharmacy #[id number], Partial fill upon patient request if the prescription is for a schedule II opioid drug., 144.78, cm, 07/06/21 14:35:00 EDT, Height Start Date: 07/06/21 Status: Ordered Problem List Condition Confirmation Course Effective Dates Status Health St atus Informant Depression Confirmed Active Obese class II Confirmed Active Current tobacco use Confirmed Active Patient Care team information Care Team Personnel Name: Robyn Aals MD Position: [facility] Resident Member Role: PCP Address: Address: [address] [place] [address]- Care Team Related Persons Name: ASTRID SERNA Name: AGUSTÍN ASHFORD Address: home [address] [place] [address]
--- OUTSIDE RECORDS SUMMARY | 2022-08-28 14:10 | XMS_ITS | Continuity of Care Document ---
Author Name Unknown Organization [facility] Address [address] [place] [address]- Care Team Providers Care Steam Train Driver Name Role Phone Robyn Alas MD Primary Care Physician Encounter [facility] Date(s): 01/15/22 - 01/22/22 [facility] [address] [place], [place] [address] Attending Physician: Julio Cesar Massey DO Referring Physician: Robyn Alas MD Allergies, Adverse Reactions, Alerts No Known [...] 11 Refills, Maintenance, 07/06/21 14:42:00 EDT, Tablet, [facility]/pharmacy #[id number], Partial fill upon patient request if the prescription is for a schedule II opioid drug., 144.78, cm, 07/06/21 14:35:00 EDT, Height Start Date: 07/06/21 Status: Ordered Problem List Condition Confirmation Course Effective Dates Status Health St atus Informant Depression Confirmed Active Obese class I Confirmed Active Current tobacco use Confirmed Active Vital Signs Most recent to oldest [Reference Range]: 1 Height 144.78 cm (01/15/22 2:14 PM) Oxygen Saturation [94-100 %] 98 % (01/15/22 2:14 PM) Pulse Rate [55-90 bpm] 85 bpm (01/15/22 2:14 PM) Blood Pressure [90-138/55-84 mm Hg] 110/ 57mm Hg (01/15/22 2:14 PM) Respiratory Rate [16-30 br/min] 16 br/mi n (01/15/22 2:14 PM) Temperature [96.8-100.4 DegF] 99.2 DegF (01/15/22 2:14 PM) Mode of Delivery (Oxygen) Room air (01/15/22 2:14 PM) Blood pressure sites Arm, right (01/15/22 2:14 PM) Temperature Route Temporal (01/15/22 2:14 PM) Patient Care team information Personnel Name: Robyn Alas MD Address: Address: [address] [place] [address]
--- OUTSIDE RECORDS SUMMARY | 2022-08-28 14:10 | XMS_ITS | Continuity of Care Document ---
Author Name Unknown Organization [facility] Address [address] [place] [address]- Care Team Providers Care Central Scheduler Name Role Phone Robyn Alas MD Primary Care Physician Encounter [facility] Date(s): 06/13/21 - 07/13/[address] [address] Allergies, Adverse Reactions, Alerts No Known Allergies [...] 11 Refills, Maintenance, 07/06/21 14:42:00 EDT, Tablet, [facility]/pharmacy #[id number], Partial fill upon patient request if the prescription is for a schedule II opioid drug., 144.78, cm, 07/06/21 14:35:00 EDT, Height Start Date: 07/06/21 Status: Ordered Problem List Condition Effective Dates Status Health Status Inform ant Depression(Confirmed) Active Obese class I(Confirmed) Active Current tobacco use(Confirmed) Active
--- OUTSIDE RECORDS SUMMARY | 2022-08-28 14:10 | XMS_ITS | Continuity of Care Document ---
Author Name Unknown Organization [facility] Address [address] [place] [address]- Care Team Providers Care House Fellow Name Role Phone Robyn Alas MD Primary Care Physician Encounter [facility] Date(s): 07/15/22 - 08/14/[address] [address]- Allergies, Adverse Reactions, Alerts No Known Allergies Immunizations Given and Recorded Vaccine Date Status Refusal Reason SARS-CoV-2 mRNA (eejyagi-ydgk-ozjho) vax 05/09/22 Given SARS-CoV-2 mRNA (tafezsb-mlrn-emmoo) vax 04/18/22 Given tetanus/diphtheria/pertussis, acel(Tdap) 04/18/22 Given [...] Medications sertraline 25 mg oral tablet 1 tablet, By Mouth, Daily, # 30 tablet, 11 Refills, Maintenance, 07/16/22 14:21:00 EDT, [id number], 144.78, cm, 04/18/22 13:40:00 EST, Height Start Date: 07/16/22 Status: Ordered Problem List Condition Confirmation Course Effective Dates Status Health St atus Informant Depression Confirmed Active Obese class II Confirmed Active Current tobacco use Confirmed Active Patient Care team information Care Team Personnel Name: Robyn Alas MD Position: [facility] Resident Member Role: PCP Address: Address: [address] [place] [address]- Care Team Related Persons Name: ASTRID SERNA Name: AGUSTÍN ASHFORD Address: home [address] [place] [address]
--- NOTE | 2022-08-28 16:42 | PC.NURSE ---
Ja arrived to the unit at 1423 on a section 12B from [facility] [place] an overdose from Tylenol. Per crisis assessment patient has been disorganized, confused, exhibiting aggressive behaviors. Patient required 4 point restraint when arriving to the ED on 08/26/2022. Patient also eloped from medical unit, making it outside and jumping into an unknown vehicle, staff and security escorted patient back to the unit. This morning it was reported that she was disrobing and coming out of her room to the hallway, she also defecated on the floor, demanding to leave she was on 1:1 with a security detail. Per nurse patient was also showering with hospital attire on, as well as cheeking meds. Sharps check done by technical report writer and SUMEMR Reyes, when she arrived on the unit. Ja declined to participate or answer any questions, appeared to have a blank stare. Later on she asked to shower, appears paranoid, guarded, suspicious of staff asking Are you ok. She briefly came out to the milieu, kept to self. No medical issues reported, patient is currently on a 1:1.
[2022-08-28 23:17] VITALS: BP 112/68; PULSE 103; TEMP 36.7; O2SAT 100
[2022-08-29] MEDS: OLANZapine 5 MG TABLET PO ×2 (01:09→13:37)
[2022-08-29] MEDS: traZODone HCL 50 MG TABLET PO (01:09)
[2022-08-29 01:33] VITALS: BMI 30.1
[2022-08-29] MEDS: Nicotine 21 MG PATCH.TD24 TRANSDERMA (10:27)
--- NOTE | 2022-08-29 12:16 | P.HPPS_ITS ---
HPI Date of Service: 08/29/22 Chief Complaint: Post sa Sources of Information: patient interviewed, chart reviewed and crisis/core team assessment reviewed HPI Subjective Notes: Regalado Warning and Section 12B Narrative: Ms. Peres is a 27 year-old woman who was brought in by police after found wondering. In the ED, pt reported suicide attempt via OD on tylenol. In the ED, acetaminophen level was 67. Utox was positive for PCP. Pt presented as agitated, taking off IV. Not able to be redirected requiring IM olanzapine and ativan. Pt was admitted to medical floor for tx of acetaminophen overdose and started on NAC drip. On 08/28, acetaminophen level was less than 17. On the unit, pt continues to present as disorganized. She asks to take a shower. Pt entering to other patient's room and did disrobe in front of peers. Pt needed to be redirected. Pt continues to on a one to one as she presents as disorganized and confused. When this development writer tried to speak with her, she was moving pieces of puzzle but not able to put pieces together. She looked at this development writer and went to her room. She covered herself with blanket. When this development writer attempted again to explain pt situation that brought her to the hospital and to this unit, pt stood up and asked this development writer can I take a shower now? Pt had taken a shower a few hours ago. Any attempts to redirect the conversation were not successful and pt appeared not to fully comprehend information given and appeared internally preoccupied. Past Psychiatric History: Inpatient: none OP: none Past medications: sertraline Medical Evaluation Reviewed: Yes [facility] Medical History No known health problems Diagnostics Vital Signs (24Hr): Vital Signs - 24 hr 08/28/22 23:17 Temperature 98.1 F Pulse Rate 103 H Blood Pressure 112/68 Pulse Oximetry 100 Oxygen Delivery Method Room Air BMI result Body Mass Index 30.1 Meds/Allergies Allergies Allergies Allergy/AdvReac Type Severity Reaction Status Date / Time No Known Allergies Allergy Verified 02/07/21 00:56 Mental Status Exam Mental Status Exam Narrative: Appearance: wearing hospital gown, fair hygiene, in NAD Behavior: poor attention and confusion affecting ability to engage in any kind of meaningful conversation about treatment Psychomotor: no agitation or retardation noted Speech: clear, at times some delayed in response, regular rhythm, spontaneous TP: some derailment at times TC: wanting to take a shower Mood: fine Affect: confused/ looking through others Si: unable to assess HI: unable to assess AH/VH: unclear if internally preoccupied Delusions: no overt delusional content noted or reported. Insight/judgment: impaired x 2. alert, oriented to place, month, year not so much situation or events leading to this admission. 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 Constantino is a 27 year-old woman with unclear psychiatric hx who was brought on a sect 12 by police as pt was found wondering. Pt in the ED presented as agitated. She did report intentional OD with tylenol as suicide attempt. Her acetaminophen levels were 67. Her utox was positive for PCP. Pt was admitted to medicine for acetaminophen toxicity and started on NAC drip. Acetaminophen level down to 17. Pt continues to present as confused, disorganized bizarre behaviors. She appears internally preoccupied. PLAN 1. Admit to M3, Sect 12b, one to one due to disorganized behaviors and lack of awareness of safety 2. continue olanzapine 5mg po BID, prn olanzapine 10 q6h, prn agitation 3. obtain collateral information 4. Aftercare planning. Patient educated on: diagnosis Reason for continued inpatient stay Substantial Risk for: inability to function Statement Statement: I have reviewed the history and physical and performed a pertinent examination on my patient. No changes have occurred unless specified. If the History and Physical was not performed prior to admission, the Hospitalist's service will be consulted for completing the admission physical. Time Spent With Patient Time: Total time managing care of this patient today ____ minutes.
[2022-08-29] MEDS: hydrOXYzine HCL 25 MG TABLET PO (13:36)
[2022-08-29] MEDS: Nicotine Polacrilex 2 MG GUM BUCCAL (15:53)
[2022-08-29] MEDS: OLANZapine ODT 10 MG TAB.RAPDIS TRANSLINGU (15:53)
[2022-08-29] MEDS: LORazepam 1 MG TABLET PO (15:53)
[2022-08-30 06:00] VITALS: RESP 16
--- NOTE | 2022-08-30 08:12 | PC.NURSE ---
Patient woke at approximately 0445, requesting to take a shower. Upon staff opening clean utility closet to gather supplies for shower, patient forcefully entered room behind staff. Patient took razor and proceeded to shower, demanding her clothing in exchange for the razor. Upon educating patient regarding boundaries and waiting to be given supplies, patient became accusatory of staff, stating It was given to me. Patient denying that she had taken razor without permission. Patient was given the clothing that is acceptable per unit policy. Razor was then returned to staff without incident, threat or injury/harm to staff or self.
[2022-08-30] MEDS: Nicotine 21 MG PATCH.TD24 TRANSDERMA (08:33)
[2022-08-30] MEDS: Nicotine Polacrilex 2 MG GUM BUCCAL ×3 (08:33→18:01)
[2022-08-30] MEDS: OLANZapine 5 MG TABLET PO (08:51)
[2022-08-30] MEDS: LORazepam 1 MG TABLET PO ×2 (08:51→14:43)
--- NOTE | 2022-08-30 11:09 | PC.NURSE ---
Per md patient can get fresh air breaks with security.
--- NOTE | 2022-08-30 14:29 | HO.PSYCHPN ---
Subjective Subjective Date of Service: 08/30/22 Reason For Visit: Post sa Subjective Notes: Section 12B Interim History: Pt appears slightly more organized in that she is able to have more coherent conversation although continues to present as internally preoccupied and with paranoid delusions. Per nursing, pt grabbed a razor, stand-off with staff last night. Today, pt asked if she can go today. She states I came voluntarily Pt explained that she was very confused, disorganized behaviors, had eloped from medical floor, defecated on floor, disrobed in another patient's room. Pt did not seem to remember this, however, pt presents as very guarded, asks this senior underwriter to leave and states she is not talking any more. Family meeting with her brother who reports that pt in the past seemed to be having conversations with someone who is not there. Brother reports he has not seen pt as decompensated as she is now. He states that pt had called their mother to tell her that her brother is going to penitentiary and she is going to court for her brother's wrong doings. Medication Compliance: Intermittent Side effects from medications: No Attending Groups: No Review of Systems Acute medical concerns: No Review of Systems Review of Systems Yes Unobtainable due to mental status Mental Status Exam Mental Status Exam Narrative: Appearance: wearing hospital gown, fair hygiene, in NAD Behavior: poor attention and confusion affecting ability to engage in any kind of meaningful conversation about treatment Psychomotor: no agitation or retardation noted Speech: clear, at times some delayed in response, regular rhythm, spontaneous TP: some derailment at times TC: wanting to take a shower Mood: fine Affect: confused/ looking through others Si: unable to assess HI: unable to assess AH/VH: unclear if internally preoccupied Delusions: no overt delusional content noted or reported. Insight/judgment: impaired x 2. alert, oriented to place, month, year not so much situation or events leading to this admission. Diagnostics Vital Signs (24Hr): Vital Signs - 24 hr 08/30/22 06:00 Respiratory Rate 16 BMI result Body Mass Index 30.1 Medications Medications Current Medications Acetaminophen (Acetaminophen 325 Mg Tablet) 650 mg PO Q6H PRN PRN Reason: Headache/Pain Mild Scale (1-3) Al Hydroxide/Mg Hydroxide (Magnesium Hydrox/Alum Hydrox 30 Ml Oral.Susp) 30 ml PO Q6H PRN PRN Reason: Heartburn/Nausea Lorazepam (Lorazepam 1 Mg Tablet) 1 mg PO Q4H PRN PRN Reason: agitation/anxiety/sleep Lorazepam (Lorazepam 1 Mg Tablet) 1 mg PO TID [facility] Last Admin: 08/30/22 08:51 Dose: 1 mg Magnesium Hydroxide (Milk Of Magnesia 30 Ml Oral.Susp) 30 ml PO DAILY PRN PRN Reason: Constipation Nicotine (Nicotine 21 Mg Patch.Td24) 21 mg TRANSDERMA DAILY [facility] Last Admin: 08/30/22 08:33 Dose: 21 mg Nicotine Polacrilex (Nicotine Polacrilex 2 Mg Gum) 2 mg BUCCAL Q2H PRN PRN Reason: Nicotine Cravings Last Admin: 08/30/22 12:22 Dose: 2 mg Olanzapine (Olanzapine 5 Mg Tablet) 5 mg PO BID [facility] Last Admin: 08/30/22 08:51 Dose: 5 mg Olanzapine (Olanzapine Odt 10 Mg Tab.Rapdis) 10 mg TRANSLINGU Q6H PRN PRN Reason: agitation Last Admin: 08/29/22 15:53 Dose: 10 mg Trazodone HCl (Trazodone Hcl 50 Mg Tablet) 50 mg PO BEDTIME PRN PRN Reason: Insomnia Last Admin: 08/29/22 01:09 Dose: 50 mg Allergies Allergies Allergy/AdvReac Type Severity Reaction Status Date / Time No Known Allergies Allergy Verified 02/07/21 00:56 Assessment & Plan Assessment & Plan (1) Acute psychosis: Status: Acute Code(s): F23 - Brief psychotic disorder (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 Constantino is a 27 year-old woman with unclear psychiatric hx who was brought on a sect 12 by police as pt was found wondering. Pt in the ED presented as agitated. She did report intentional OD with tylenol as suicide attempt. Her acetaminophen levels were 67. Her utox was positive for PCP. Pt was admitted to medicine for acetaminophen toxicity and started on NAC drip. Acetaminophen level down to 17. Pt continues to present as confused, disorganized bizarre behaviors. She appears internally preoccupied. PLAN 1. Admit to M3, Sect 12b, one to one due to disorganized behaviors and lack of awareness of safety 2. continue olanzapine 5mg po BID, prn olanzapine 10 q6h, prn agitation 3. obtain collateral information 4. Aftercare planning. 08/30 continue current medications. Reason for continued inpatient stay Substantial Risk for: inability to function Time Spent With Patient Time: Total time managing care of this patient today ____ minutes.
[2022-08-30 22:29] VITALS: RESP 14
--- NOTE | 2022-08-31 02:13 | PC.NURSE ---
agitation-up requesting clothing and wanting to leave. agitated. mild threats ''you just wait and see I'll take care of you'' refusing medications. is eating and drinking but is looking at t/w with intense stare
[2022-08-31] MEDS: OLANZapine ODT 10 MG TAB.RAPDIS TRANSLINGU ×2 (03:39→13:12)
[2022-08-31] MEDS: Nicotine Polacrilex 2 MG GUM BUCCAL ×6 (03:39→18:34)
[2022-08-31] MEDS: LORazepam 1 MG TABLET PO ×4 (03:39→20:11)
--- NOTE | 2022-08-31 09:56 | HO.PSYCHPN ---
Subjective Subjective Date of Service: 08/31/22 Reason For Visit: Post sa Subjective Notes: Section 12B Healthcare Proxy: No Guardianship: No Medical Problems Affecting Mental Status: No Interim History: Patient was seen and discussed in rounds today. Records and plans were reviewed. She has been doing a little better, being little more clear and organized but continues to be preoccupied with internal stimuli, paranoia and delusions. She is on one-to-one observation. Irritable at times. Questioning about her discharge. She has been medication compliant. No changes were made today Review of Systems Review of Systems Yes Unobtainable due to mental status Mental Status Exam Mental Status Exam Narrative: In today's visit she is alert, pleasant, minimally interactive. Soft-spoken speech. No eye contact. Affect is constricted. Appears to be responding to internal stimuli. Would not respond to questions about suicidality. Would not respond about auditory and visual hallucinations. Thought processes are disorganized. Judgment is marginal Diagnostics Vital Signs (24Hr): Vital Signs - 24 hr 08/30/22 22:29 Respiratory Rate 14 BMI result Body Mass Index 30.1 Medications Medications Current Medications Acetaminophen (Acetaminophen 325 Mg Tablet) 650 mg PO Q6H PRN PRN Reason: Headache/Pain Mild Scale (1-3) Al Hydroxide/Mg Hydroxide (Magnesium Hydrox/Alum Hydrox 30 Ml Oral.Susp) 30 ml PO Q6H PRN PRN Reason: Heartburn/Nausea Lorazepam (Lorazepam 1 Mg Tablet) 1 mg PO Q4H PRN PRN Reason: agitation/anxiety/sleep Last Admin: 08/31/22 03:39 Dose: 1 mg Lorazepam (Lorazepam 1 Mg Tablet) 1 mg PO TID [facility] Last Admin: 08/30/22 22:28 Dose: Not Given Magnesium Hydroxide (Milk Of Magnesia 30 Ml Oral.Susp) 30 ml PO DAILY PRN PRN Reason: Constipation Nicotine (Nicotine 21 Mg Patch.Td24) 21 mg TRANSDERMA DAILY [facility] Last Admin: 08/30/22 08:33 Dose: 21 mg Nicotine Polacrilex (Nicotine Polacrilex 2 Mg Gum) 2 mg BUCCAL Q2H PRN PRN Reason: Nicotine Cravings Last Admin: 08/31/22 06:21 Dose: 2 mg Olanzapine (Olanzapine 5 Mg Tablet) 5 mg PO BID [facility] Last Admin: 08/30/22 22:28 Dose: Not Given Olanzapine (Olanzapine Odt 10 Mg Tab.Rapdis) 10 mg TRANSLINGU Q6H PRN PRN Reason: agitation Last Admin: 08/31/22 03:39 Dose: 10 mg Trazodone HCl (Trazodone Hcl 50 Mg Tablet) 50 mg PO BEDTIME PRN PRN Reason: Insomnia Last Admin: 08/29/22 01:09 Dose: 50 mg Allergies Allergies Allergy/AdvReac Type Severity Reaction Status Date / Time No Known Allergies Allergy Verified 02/07/21 00:56 Assessment & Plan Assessment & Plan (1) Acute psychosis: Status: Acute Code(s): F23 - Brief psychotic disorder (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 Constantino is a 27 year-old woman with unclear psychiatric hx who was brought on a sect 12 by police as pt was found wondering. Pt in the ED presented as agitated. She did report intentional OD with tylenol as suicide attempt. Her acetaminophen levels were 67. Her utox was positive for PCP. Pt was admitted to medicine for acetaminophen toxicity and started on NAC drip. Acetaminophen level down to 17. Pt continues to present as confused, disorganized bizarre behaviors. She appears internally preoccupied. PLAN 1. Admit to M3, Sect 12b, one to one due to disorganized behaviors and lack of awareness of safety 2. continue olanzapine 5mg po BID, prn olanzapine 10 q6h, prn agitation 3. obtain collateral information 4. Aftercare planning. 08/30 continue current medications. 08/31: Continue current regimen and plans Reason for continued inpatient stay Substantial Risk for: med/psych decompensation Time Spent With Patient Time: Total time managing care of this patient today ____ minutes.
[2022-08-31] MEDS: Nicotine 21 MG PATCH.TD24 TRANSDERMA (13:32)
[2022-08-31 20:00] VITALS: BP 122/60; PULSE 103; TEMP 37.1; O2SAT 100
[2022-08-31] MEDS: OLANZapine 5 MG TABLET PO (20:06)
--- NOTE | 2022-09-01 08:09 | HO.PSYCHPN ---
Subjective Subjective Date of Service: 09/01/22 Reason For Visit: behavioral Subjective Notes: Section 12B Healthcare Proxy: No Guardianship: No Medical Problems Affecting Mental Status: No Interim History: Patient was seen and discussed in rounds today. Records and plans were reviewed. She had a better morning yesterday but had an episode of out person the afternoon. She has been and one-to-one and we considered reviewing that today may be taking a rough however this morning she is quite irritated, coming out of her room with chest a brawl and focus stone being discharge. She has not been exit seating however and at this point I think it is better to keep her on the one-to-one unless things change during the day. Yesterday she actually had some insight over her behavior which led to her being brought to the hospital. Review of Systems Review of Systems Yes all other systems are reviewed and are negative Mental Status Exam Mental Status Exam Narrative: In today's visit she is alert, quite irritable and focused on being discharged.. Speech is pressured and angry.. No eye contact. Affect is angry. May still be responding to internal stimuli. Would not respond to questions about suicidality. Would not respond about auditory and visual hallucinations. Thought processes are disorganized. Judgment is marginal Diagnostics Vital Signs (24Hr): Vital Signs - 24 hr 08/31/22 20:00 Temperature 98.7 F Pulse Rate 103 H Blood Pressure 122/60 Pulse Oximetry 100 Oxygen Delivery Method Room Air BMI result Body Mass Index 30.1 Medications Medications Current Medications Acetaminophen (Acetaminophen 325 Mg Tablet) 650 mg PO Q6H PRN PRN Reason: Headache/Pain Mild Scale (1-3) Al Hydroxide/Mg Hydroxide (Magnesium Hydrox/Alum Hydrox 30 Ml Oral.Susp) 30 ml PO Q6H PRN PRN Reason: Heartburn/Nausea Lorazepam (Lorazepam 1 Mg Tablet) 1 mg PO Q4H PRN PRN Reason: agitation/anxiety/sleep Last Admin: 08/31/22 20:11 Dose: 1 mg Lorazepam (Lorazepam 1 Mg Tablet) 1 mg PO TID [facility] Last Admin: 08/31/22 20:06 Dose: 1 mg Magnesium Hydroxide (Milk Of Magnesia 30 Ml Oral.Susp) 30 ml PO DAILY PRN PRN Reason: Constipation Nicotine (Nicotine 21 Mg Patch.Td24) 21 mg TRANSDERMA DAILY [facility] Last Admin: 08/31/22 13:32 Dose: 21 mg Nicotine Polacrilex (Nicotine Polacrilex 2 Mg Gum) 2 mg BUCCAL Q2H PRN PRN Reason: Nicotine Cravings Last Admin: 08/31/22 18:34 Dose: 2 mg Olanzapine (Olanzapine 5 Mg Tablet) 5 mg PO BID RON Last Admin: 08/31/22 20:06 Dose: 5 mg Olanzapine (Olanzapine Odt 10 Mg Tab.Rapdis) 10 mg TRANSLINGU Q6H PRN PRN Reason: agitation Last Admin: 08/31/22 13:12 Dose: 10 mg Trazodone HCl (Trazodone Hcl 50 Mg Tablet) 50 mg PO BEDTIME PRN PRN Reason: Insomnia Last Admin: 08/29/22 01:09 Dose: 50 mg Allergies Allergies Allergy/AdvReac Type Severity Reaction Status Date / Time No Known Allergies Allergy Verified 02/07/21 00:56 Assessment & Plan Assessment & Plan (1) Acute psychosis: Status: Acute Code(s): F23 - Brief psychotic disorder (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 Constantino is a 27 year-old woman with unclear psychiatric hx who was brought on a sect 12 by police as pt was found wondering. Pt in the ED presented as agitated. She did report intentional OD with tylenol as suicide attempt. Her acetaminophen levels were 67. Her utox was positive for PCP. Pt was admitted to medicine for acetaminophen toxicity and started on NAC drip. Acetaminophen level down to 17. Pt continues to present as confused, disorganized bizarre behaviors. She appears internally preoccupied. PLAN 1. Admit to M3, Sect 12b, one to one due to disorganized behaviors and lack of awareness of safety 2. continue olanzapine 5mg po BID, prn olanzapine 10 q6h, prn agitation 3. obtain collateral information 4. Aftercare planning. 08/30 continue current medications. 08/31: Continue current regimen and plans 09/01: Continue current regimen and plans. Continue one-to-one for now Reason for continued inpatient stay Substantial Risk for: med/psych decompensation Time Spent With Patient Time: Total time managing care of this patient today ____ minutes.
[2022-09-01] MEDS: OLANZapine ODT 10 MG TAB.RAPDIS TRANSLINGU ×2 (09:38→18:58)
[2022-09-01] MEDS: Nicotine 21 MG PATCH.TD24 TRANSDERMA (09:38)
[2022-09-01] MEDS: LORazepam 1 MG TABLET PO ×3 (09:38→18:58)
--- NOTE | 2022-09-01 15:28 | PC.NURSE ---
Pt demanded to know what her legal status was. RN explained that she was currently a 12b, made a copy of her section 12b and provided to the pt. RN tried to explain what the 12b was but pt frequently interrupted and said I never signed this. So this means I'm sectioned? How long am I being sectioned for? When RN tried to explain that it is a 72 hour hold and she could sign a CV, pt continued to interrupt and became increasingly agitated so RN walked away from the conversation. Pt is upset that she's here and is demanding to be discharged by tomorrow.
[2022-09-01] MEDS: Nicotine Polacrilex 2 MG GUM BUCCAL ×2 (18:58→22:59)
--- NOTE | 2022-09-01 19:12 | PC.NURSE ---
Pt asked to see her original 12b, she said there was a pink piece of paper that I signed downstairs, can I see it?' RN tried to explain that this was signed by the doctor and not by her. RN gave patient a copy but showed pt the original through the nurse's station window to show her they were the same document but pt lunged over the nurse's station window and ripped up the document. Pt stated I never signed this and I'm not giving you a reason to keep me here longer. These are my documents I can do what I want with them. Pt refused to give RN the shredded pieces of paper (the remaining recovered piece is in a plastic bag in her chart). RN was able to make a copy of the 12b prior to it being ripped up by the patient.
[2022-09-01] MEDS: traZODone HCL 50 MG TABLET PO (23:21)
--- NOTE | 2022-09-02 03:01 | PC.NURSE ---
Addendum entered by Rayne Gimenez RN 09/02/22 07:01: @ 06:45 patient was asking for am Zyprexa and Ativan this instructional writer confirmed approval of early administration with covering provider Bairon hardy RN to be made aware in shift report. Patient requested and received printed information about Ativan and Zyprexa Original Note: Ja is noted to be isolating in her room for most of the evening. at the beginning of the shift she was pleasant and cooperative. she stated that she is not a mean person and doesn't understand why she is having rapid mood swings. and believes it is her prescribed meds that are effecting her mood. she denies suicidal/homicidal ideation she denies depression and anxiety, during late in the evening she asked to use scissors and quickly became angry with the staff and dumped out a bucked of puzzle pieces. no further behavioral concerns noted. patient did not take her HS medications. she denies suicidal/homicidal ideation, auditory/visual hallucinations , depression and anxiety. she states I didn't feel like this before I came in that's why I know it's the meds. patient was encouraged to speak with her provider about her medications. monitor for safety, continue Plan of Care
[2022-09-02] MEDS: Nicotine Polacrilex 2 MG GUM BUCCAL ×3 (05:49→11:41)
[2022-09-02 06:00] VITALS: RESP 18
[2022-09-02] MEDS: OLANZapine 5 MG TABLET PO (06:53)
[2022-09-02] MEDS: LORazepam 1 MG TABLET PO ×2 (06:53→11:41)
[2022-09-02] MEDS: Nicotine 21 MG PATCH.TD24 TRANSDERMA (09:05)
[2022-09-02] MEDS: OLANZapine ODT 10 MG TAB.RAPDIS TRANSLINGU (09:33)
--- NOTE | 2022-09-02 10:44 | PM.PSYDC ---
DS: Providers Provider Date of Service: 09/02/22 Date of admission: 08/28/22 14:08 Primary care physician: Unknown Physician Consults: 08/28/22 14:47 Consult for Sitter Routine Reason for consultation: SI Consult to Care Team Stat Comment: Reason for consultation: 2nd request pt medically cleare Consult to Care Team Stat Comment: Reason for consultation: Refusing care. Medically cleared from poison control perspective Consult to Care Team Stat Comment: Reason for consultation: si Consult to Psychiatry Routine Consulting Provider: Psych Covering Reason for consultation: suicide attempt Has provider been notified: No Consult to Psychiatry Stat Consulting Provider: Psych Covering Reason for consultation: Refusing care. Medically cleared from poison control perspective DS: Diagnosis Discharge Diagnosis (1) Acute psychosis: Status: Acute (2) PCP abuse: Status: Acute DS: Medications Discharge Medications Home Medications: Previous Rx's Medication Instructions Recorded nicotine (polacrilex) 2 mg gum 2 mg buccal Q2H PRN Nicotine 09/02/22 Cravings #60 ea nicotine 21 mg/24 hr daily 21 mg transdermal DAILY #30 ea 09/02/22 transdermal patch olanzapine 10 mg tablet 10 mg PO BID #60 tabs 09/02/22 trazodone 50 mg tablet 50 mg PO BEDTIME PRN Insomnia #30 09/02/22 tabs Mental Status Exam Mental Status Exam Narrative: Appearance: wearing hospital gown, fair hygiene, in NAD Behavior: cooperative Psychomotor: no agitation or retardation noted Speech: clear, regular rate/ rhythm/ volume, spontaneous TP: more linear and coherent TC: worried about effects of PCP, feeling better, apologetic Mood: better Affect: congruent, bright, non labile Si: none HI: none AH/VH: none Delusions: no overt delusional content noted or reported. Insight/judgment: impaired x 2. Memory/cog: alert, oriented x 4. improving. No signs of delirium. improved attention, orientation and thought process. DS: Summary Hospital Course Hospital Course: Subjective Notes: [place] Warning and Section 12B Narrative: Ms. Peres is a 27 year-old woman who was brought in by police after found wondering. In the ED, pt reported suicide attempt via OD on tylenol. In the ED, acetaminophen level was 67. Utox was positive for PCP. Pt presented as agitated, taking off IV. Not able to be redirected requiring IM olanzapine and ativan. Pt was admitted to medical floor for tx of acetaminophen overdose and started on NAC drip. On 08/28, acetaminophen level was less than 17. On the unit, pt continues to present as disorganized. She asks to take a shower. Pt entering to other patient's room and did disrobe in front of peers. Pt needed to be redirected. Pt continues to on a one to one as she presents as disorganized and confused. When this press writer tried to speak with her, she was moving pieces of puzzle but not able to put pieces together. She looked at this press writer and went to her room. She covered herself with blanket. When this press writer attempted again to explain pt situation that brought her to the hospital and to this unit, pt stood up and asked this press writer can I take a shower now? Pt had taken a shower a few hours ago. Any attempts to redirect the conversation were not successful and pt appeared not to fully comprehend information given and appeared internally preoccupied. Past Psychiatric History: Inpatient: none OP: none Past medications: sertraline Medical Evaluation Reviewed: Yes HOSPITAL COURSE On the unit, pt was admitted on a Sect 12b and placed on 1 to 1 due to lack of safety awareness, disrobing, entering other peers rooms, several showers. Pt was started on olanzapine 5mg po BID, ativan and prn dose of olanzapine. Pt initially declined taking medications but eventually agreed to take them more consistently. Her affect gradually presented as less disorganized and labile. Her thought process was more organized and logical. She did have gaps in her recall of events leading to this admission. Pt reports she was using PCP and had not been able to sleep for days. She reports she was hearing voices and was paranoid about someone going after her. She reported OD on tylenol as response to psychosis, which is very scare for her as she states if she wasn't psychotic she had not tried to harm herself. Pt reports feeling somewhat anxious but much calmer. She has been eating and sleeping well. At time of discharge, pt does not present with overt psychosis or delusional statement. She shows increased insight into symptoms that brought her to the unit under sect 12b. Her sect 12b is up today. She agrees to continue medications and follow up outpatient providers. Further, evaluation to determine substance induced psychosis versus underlying Bipolar exacerbated by PCP use. Time spent discussing smoking cessation with patient: 3 to 10 minutes Status at Discharge Cognitive/behavioral status at discharge: Pt with brighter, non labile. No overt psychosis or delusions. No SI/HI. Pt sleeping through the night. Her thought process is more organized and logical. No aggression towards self or others. Functional status at discharge: independent ambulation Overall status at discharge: patient is progressing back to baseline Time Spent with Patient Time attestation: Total time managing care of this patient today __30__ minutes. Discharge Plan Discharge Anticipated Discharge Date/Time: 09/02/22 10:39 Patient Disposition: Home, Self-Care Discharge Diagnosis: Psychosis, r/o Bipolar versus substance induced Referrals: Physician,Unknown J [Primary Care Provider] - 1 Week Discharge Medications: New nicotine (polacrilex) 2 mg Gum 2 mg buccal Q2H PRN (Reason: Nicotine Cravings) Qty: 60 0RF nicotine 21 mg/24 hr Patch 24 Hour 21 mg transdermal DAILY Qty: 30 0RF olanzapine 10 mg tablet 10 mg PO BID Qty: 60 0RF trazodone 50 mg Tablet 50 mg PO BEDTIME PRN (Reason: Insomnia) Qty: 30 0RF Discharge Orders: Discharge Order (Routine); Ordered 09/02/22 Ordered By: Michelle Christopher Diet: Regular diet Activity on Discharge: As tolerated Stand Alone Forms: Patient Portal Discharge page Care Plan Goals: 1. Maintain mood 2. No SI/HI 3. No overt psychosis or delusions 4. Harm reduction- continue working on decreasing PCP use Health Concerns: Follow up with PCP Plan of Treatment: 1. Take medications as prescribed 2. Go to nearest ED or call 911 in event of emergency Assessment: Pt with bright, non labile affect. No overt psychosis or delusional content although suspect some residual symptoms. Pt is logical and coherent. Increase insight into events leading to this admission. No SI/HI. No signs of aggression towards self or others. Pt sleeping and eating well.
== END 2022-09-02 11:45 | disposition home or self-care (01) | DRG 753 ==
PROVIDERS: Admitting Provider Psychiatry & Neurology Psychiatry; Visit Provider Social Worker
DX: F31.9 Bipolar disorder, unspecified (principal); F16.159 Hallucinogen abuse with hallucinogen-induced psychotic disorder, unspecified; F17.210 Nicotine dependence, cigarettes, uncomplicated; Z71.6 Tobacco abuse counseling; Z79.899 Other long term (current) drug therapy

== ENCOUNTER 2023-05-02 10:50 | Emergency (ER) | payer OTHER, SELFPAY ==
[2023-05-02 11:08] VITALS: BP 128/81; BP 144/92; PULSE 80; PULSE 84; RESP 18; TEMP 36.6; O2SAT 100; O2SAT 96; BMI 40.4
[2023-05-02] MEDS: OLANZapine ODT 10 MG TAB.RAPDIS TRANSLINGU (11:20)
[2023-05-02] MEDS: LORazepam 1 MG TABLET 2 MG PO (11:20)
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
--- NOTE | 2023-05-02 11:32 | PC.NURSE ---
Changed into hospital attire, po meds as ordered, provided with food and fluids, patient with frequent emotional outburst, unable to say why she is upset
--- NOTE | 2023-05-02 13:26 | MHC.EDTECH ---
This PCT attempted to obtain labs on patient for the 2nd time, patient refused x2.
--- NOTE | 2023-05-02 14:27 | PC.NURSE ---
Patient remains with 1:1 for safety. Awake to verbal/tactile stimulation unsure where she is. Able to be re oriented but with not able to recall how she ended up in the hospital. Continues to refuse lab draws
[2023-05-02 16:52] LABS: Amphetamine Screen Urine Not Detected (Not Detect); Barbiturates, Urine Not Detected (Not Detect); Benzodiazepines Screen Urine Not Detected (Not Detect); Cannabinoid Screen Urine POSITIVE (Not Detect); Cocaine Screen Urine Not Detected (Not Detect); Fentanyl, urine Not Detected (Not Detect); Opiate Screen Urine Not Detected (Not Detect); Phencyclidine Screen Urine POSITIVE (Not Detect)
--- NOTE | 2023-05-02 17:25 | PC.NURSE ---
Report called to POD
--- NOTE | 2023-05-02 18:10 | PC.NURSE ---
Patient refusing all attempts at vitals signs. Refuses to remove arm from under covers and rolls over. 1:[address] for safety
--- NOTE | 2023-05-02 19:11 | PC.NURSE ---
patient appears at rest at present respiratoins are even and unlabored patient appears in no distress
--- NOTE | 2023-05-02 22:08 | PC.NURSE ---
approached client in regards to labs client declines, was willing to accept siena kuo.
--- NOTE | 2023-05-03 06:29 | MHC.EDTECH ---
patient refused vitals RN aware
[2023-05-03 07:58] LABS: Appearance Urine Clear; Color Urine Yellow; Glucose Urine UA Negative (Negative); Leukocyte Esterase Urine Trace (Negative); Nitrite Urine Negative (Negative); UMIC TRIGGER UA YES; Urine Blood Small (1+) (Negative); Urine Ketones 15 mg/dL (Negative); Urine Protein Negative (Neg-Trace)
[2023-05-03 07:59] LABS: UPreg QC Valid YES; Urine Pregnancy NEGATIVE (NEGATIVE)
[2023-05-03 08:30] LABS: Bacteria Urine 1+ (None Seen); Hyaline Casts Urine 0-2 /LPF (0-2)
--- NOTE | 2023-05-03 09:04 | PC.NURSE ---
assumed care of pt at 0700. pt woke up and out of bed. ate breakfast, walking around POD interacting with staff. requested to obtain a number from cell phone. made a phone call on portable. pt back in room, sleeping soundly in bed. rr even/unlabored. awaiting labs and urine. plan of care ongoing.
[2023-05-03 09:30] VITALS: BP 137/75; PULSE 105; RESP 16; TEMP 36.7; O2SAT 97
[2023-05-03 09:30] LABS: MANUAL DIFF FLAG NO
[2023-05-03 09:36] LABS: Basophils Percent Auto 0.1 % (0-2); Eosinophils Absolute Auto 0.1 X10*3/uL (0.0-0.4); Eosinophils Percent Auto 0.8 % (0-4); Hematocrit 41.6 % (37.0-47.0); Hemoglobin 13.4 g/dl (12.0-16.0); Imm Gran Abs Auto 0.03 X10*3/uL (0.00-0.03); Imm Gran Pct Auto 0.3 % (0.0-0.4); Lymphocytes Absolute Auto 2.7 X10*3/uL (1.2-4.9); Lymphocytes Percent Auto 29.9 % (20-40); Mean Corpuscular HGB Conc 32.2 g/dl (31.0-35.0); Mean Corpuscular Hemoglobin 26.3 pg (27.0-33.0); Mean Corpuscular Volume 81.7 fL (80.0-98.0); Mean Platelet Volume 9.8 fL (9.4-12.3); Monocytes Absolute Auto 0.6 X10*3/uL (0.1-1.2); Neutrophils Absolute Auto 5.5 x10*3/uL (2.0-8.3); Neutrophils Percent Auto 61.9 % (45-73); Platelet Count 294 X10*3/uL (160-400); Red Blood Count 5.09 X10*6/uL (4.20-5.50); White Blood Count 8.9 X10*3/uL (4.8-10.8)
[2023-05-03 09:51] LABS: Alanine Aminotransferase 12 U/L (0-31); Albumin Level 4.3 g/dL (3.5-5.0); Alkaline Phosphatase 81 U/L (39-117); Anion Gap 12 (12-20); Aspartate Amino Transferase 15 U/L (5-31); Bilirubin Total 0.2 mg/dL (0.0-1.0); Blood Urea Nitrogen 6 mg/dL (9-16); Calcium 9.4 mg/dL (8.4-10.2); Carbon Dioxide 27 mmol/L (22-29); Chloride 107 mmol/L (96-108); Creatinine Clr Calc Pharmacy 105.8; Estimated Glomerular Filt Rate > 60; Glucose Random 106 mg/dL (60-115); Potassium 3.9 mmol/L (3.3-5.1); Sodium 142 mmol/L (135-145); Total Protein 7.7 g/dL (6.5-8.0)
[2023-05-03 09:53] LABS: HCG Quantitative < 2 mIU/mL
--- NOTE | 2023-05-03 10:41 | PC.NURSE ---
pt took shower and changed into clean hospital attire. pt back in room, resting quietly. plan of care ongoing.
--- NOTE | 2023-05-03 11:27 | PC.NURSE ---
pt requesting PBJ and orange juice. provided.
--- NOTE | 2023-05-03 14:15 | PC.NURSE ---
pt requested and provided with siena shiela and cheese stick. plan for pt to go to [facility] at 1700 once it opens. Care Team to provide pt with Jaycee.
[2023-05-03 14:50] VITALS: BP 114/56; PULSE 102; RESP 16; O2SAT 98
--- NOTE | 2023-05-03 16:18 | MHC.RECOVRN ---
Met with pt in BH3 after pt cleared by CARE Team. Pt had presented to the ED with altered mental status. UDS+ PCP. Pt laying in bed, blanket over face, difficult to engage in conversation. Pt reports PCP use, not a lot, 3-5 times weekly x 6 months. Pt reports occasional [place] cocaine use. Educated pt on recovery resources and supports, attempted to engage pt in conversation. Pt voiced interest in head athletic trainer/strength coach but did not engage further. Provided pt with written resources as well as t/w contact information if needed. Pt denies questions or concerns. cheerleading coach referral placed.
--- NOTE | 2023-05-03 17:18 | MHC.EDTECH ---
Patient taken a shower
== END 2023-05-03 17:37 | disposition home or self-care (01) ==
PROVIDERS: Student in an Organized Health Care Education/Training Program; Emergency Provider Emergency Medicine
DX: F23 Brief psychotic disorder (principal); F22 Delusional disorders; F41.9 Anxiety disorder, unspecified; F16.10 Hallucinogen abuse, uncomplicated; F17.200 Nicotine dependence, unspecified, uncomplicated; Z79.899 Other long term (current) drug therapy
CPT/HCPCS: 36415; 80053; 80307; 81001; 81025; 84702; 85025; 99285; S9485